=== PATIENT | male | born 1965 | race Caucasian/White ===

== ENCOUNTER 2017-08-05 15:15 | Observation (INO) | payer OTHER ==
[2017-08-05] MEDS ORDERED: NITROGLYCERIN OINT 1 INCH/GM PACKET TOPICAL STA (15:48)
[2017-08-05] MEDS ORDERED: ASPIRIN 81 MG PO STA (15:48)
--- NOTE | 2017-08-05 15:54 | ED ---
General Adult HPI - General Chief complaint: Chest Pain Stated complaint: Chest Pain/SOB Time Seen by Provider: 08/05/17 15:42 Source: patient, RN notes reviewed Mode of arrival: wheelchair Limitations: no limitations - History of Present Illness Initial comments: Patient is a pleasant 52-year-old male presenting to the emergency department with chest discomfort. Onset was last night. Symptoms have been intermittent throughout the day. Symptoms do worsen with exertion. Patient has pressure in his chest that is mild at this time. No radiation. Patient does have associated dyspnea and sweating when symptoms worsen. No nausea. No history of similar symptoms previously. No leg pain or swelling. - Related Data Home Medications Medication Instructions Recorded Confirmed ARIPiprazole [Abilify] 10 mg PO DAILY 08/05/17 08/05/17 Escitalopram Oxalate [Lexapro] 20 mg PO DAILY 08/05/17 08/05/17 Multivitamins, Thera [Multivitamin 1 tab PO DAILY 08/05/17 08/05/17 (formulary)] Previous Rx's Medication Instructions Recorded Gabapentin [Neurontin] 200 mg PO TID #21 dose 08/20/15 Propranolol [Inderal] 30 mg PO BID #14 dose 08/20/15 QUEtiapine [SEROquel] 600 mg PO HS #7 dose 08/20/15 hydrOXYzine PAMOATE [Vistaril] 50 mg PO HS #7 dose 08/20/15 Allergies Allergy/AdvReac Type Severity Reaction Status Date / Time No Known Allergies Allergy Verified 08/05/17 16:27 Review of Systems ROS Statement: Those systems with pertinent positive or pertinent negative responses have been documented in the HPI. ROS Other: All systems not noted in ROS Statement are negative. Constitutional: Denies: fever Eyes: Denies: eye pain ENT: Denies: ear pain Respiratory: Denies: cough Cardiovascular: Reports: chest pain Endocrine: Denies: fatigue Gastrointestinal: Denies: abdominal pain, nausea Genitourinary: Denies: dysuria Musculoskeletal: Denies: back pain Skin: Denies: rash Neurological: Denies: weakness Past Medical History Past Medical History: Hypertension Additional Past Medical History / Comment(s): astigmatism History of Any Multi-Drug Resistant Organisms: None Reported Past Surgical History: Hernia Repair Additional Past Surgical History / Comment(s): APRIL 2015 RIGHT ING. HERNIA REPAIR. lt cubital tunnel release-2013 Past Anesthesia/Blood Transfusion Reactions: No Reported Reaction Additional Past Anesthesia/Blood Transfusion Reaction / Comment(s): FAMILY HX UNK. PT ADOPTED Past Psychological History: Anxiety, Depression Smoking Status: Current every day smoker Past Alcohol Use History: Abuse, Heavy Past Drug Use History: Marijuana - Past Family History Mother History Unknown: Yes Additional Family Medical History / Comment(s): ADOPTED General Exam Limitations: no limitations General appearance: alert, in no apparent distress Head exam: Present: atraumatic Eye exam: Present: normal appearance, PERRL ENT exam: Present: normal oropharynx Neck exam: Present: normal inspection Respiratory exam: Present: normal lung sounds bilaterally. Absent: chest wall tenderness Cardiovascular Exam: Present: regular rate, normal rhythm Expanded Peripheral pulses: 2+: Radial (R), Radial (L), Posterior Tibialis (R), Posterior Tibialis (L) GI/Abdominal exam: Present: soft, normal bowel sounds. Absent: tenderness Extremities exam: Present: normal inspection. Absent: pedal edema, calf tenderness Neurological exam: Present: alert Psychiatric exam: Present: normal affect, normal mood Skin exam: Present: normal color Course Vital Signs 08/05/17 08/05/17 15:23 16:25 Temperature 97.8 F Pulse Rate 77 74 Respiratory 20 18 Rate Blood Pressure 111/71 116/70 O2 Sat by Pulse 98 96 Oximetry EKG Findings - EKG Comments: EKG Findings:: Normal sinus rhythm 73. CT 160. QRS 88. QT 412. QTC 453. Normal axis. Normal QRS. No acute ST change. Medical Decision Making - Medical Decision Making Patient reevaluated and resting comfortably in bed. Patient updated on results and plan. Case discussed with Dr. Lentz, who will admit his patient for observation - Lab Data Result diagrams: 08/05/17 15:45 08/05/17 15:45 Lab Results 08/05/17 08/05/17 08/05/17 Range/Units 15:45 15:45 15:45 WBC 6.7 (3.8-10.6) k/uL RBC 4.28 L (4.30-5.90) m/uL Hgb 12.9 L (13.0-17.5) gm/dL Hct 38.1 L (39.0-53.0) % MCV 89.0 (80.0-100.0) fL MCH 30.2 (25.0-35.0) pg MCHC 34.0 (31.0-37.0) g/dL RDW 15.0 (11.5-15.5) % Plt Count 224 (150-450) k/uL Neutrophils % 74 % Lymphocytes % 15 % Monocytes % 9 % Eosinophils % 2 % Basophils % 0 % Neutrophils # 4.9 (1.3-7.7) k/uL Lymphocytes # 1.0 (1.0-4.8) k/uL Monocytes # 0.6 (0-1.0) k/uL Eosinophils # 0.1 (0-0.7) k/uL Basophils # 0.0 (0-0.2) k/uL PT (9.0-12.0) sec INR (<1.2) APTT (22.0-30.0) sec Sodium 139 (137-145) mmol/L Potassium 4.1 (3.5-5.1) mmol/L Chloride 105 (98-107) mmol/L Carbon Dioxide 24 (22-30) mmol/L Anion Gap 10 mmol/L BUN 11 (9-20) mg/dL Creatinine 0.84 (0.66-1.25) mg/dL Est GFR (MDRD) Af Amer >60 (>60 ml/min/1.73 sqM) Est GFR (MDRD) Non-Af >60 (>60 ml/min/1.73 sqM) Glucose 87 (74-99) mg/dL Calcium 9.1 (8.4-10.2) mg/dL Magnesium 1.9 (1.6-2.3) mg/dL Total Bilirubin 0.4 (0.2-1.3) mg/dL AST 19 (17-59) U/L ALT 30 (21-72) U/L Alkaline Phosphatase 76 (38-126) U/L Total Creatine Kinase 62 (55-170) U/L CK-MB (CK-2) 1.3 (0.0-2.4) ng/mL CK-MB (CK-2) Rel Index 2.1 Troponin I <0.012 (0.000-0.034) ng/mL Total Protein 6.1 L (6.3-8.2) g/dL Albumin 3.5 (3.5-5.0) g/dL 08/05/17 Range/Units 15:45 WBC (3.8-10.6) k/uL RBC (4.30-5.90) m/uL Hgb (13.0-17.5) gm/dL Hct (39.0-53.0) % MCV (80.0-100.0) fL MCH (25.0-35.0) pg MCHC (31.0-37.0) g/dL RDW (11.5-15.5) % Plt Count (150-450) k/uL Neutrophils % % Lymphocytes % % Monocytes % % Eosinophils % % Basophils % % Neutrophils # (1.3-7.7) k/uL Lymphocytes # (1.0-4.8) k/uL Monocytes # (0-1.0) k/uL Eosinophils # (0-0.7) k/uL Basophils # (0-0.2) k/uL PT 9.8 (9.0-12.0) sec INR 1.0 (<1.2) APTT 24.3 (22.0-30.0) sec Sodium (137-145) mmol/L Potassium (3.5-5.1) mmol/L Chloride (98-107) mmol/L Carbon Dioxide (22-30) mmol/L Anion Gap mmol/L BUN (9-20) mg/dL Creatinine (0.66-1.25) mg/dL Est GFR (MDRD) Af Amer (>60 ml/min/1.73 sqM) Est GFR (MDRD) Non-Af (>60 ml/min/1.73 sqM) Glucose (74-99) mg/dL Calcium (8.4-10.2) mg/dL Magnesium (1.6-2.3) mg/dL Total Bilirubin (0.2-1.3) mg/dL AST (17-59) U/L ALT (21-72) U/L Alkaline Phosphatase (38-126) U/L Total Creatine Kinase (55-170) U/L CK-MB (CK-2) (0.0-2.4) ng/mL CK-MB (CK-2) Rel Index Troponin I (0.000-0.034) ng/mL Total Protein (6.3-8.2) g/dL Albumin (3.5-5.0) g/dL - Radiology Data Radiology results: image reviewed (Chest x-ray shows no acute process) Disposition Clinical Impression: Chest pain Disposition: ADMITTED IP TO THIS [facility] Referrals: Fidencio Lentz MD [Primary Care Provider] - 1-2 days Decision Time: 17:54
[2017-08-05 15:59] LABS: Basophils % (A) 0 %; CHCM 33.8; Eosinophils # (A) 0.1 k/uL (0-0.7); Eosinophils % (A) 2 %; HCT 38.1 % (39.0-53.0); HGB 12.9 gm/dL (13.0-17.5); Luc # (Auto) 0.09; Luc % (Auto) 1; Lymphocytes % (A) 15 %; MCH 30.2 pg (25.0-35.0); Mean Platelet Volume 7.8; Monocytes # (A) 0.6 k/uL (0-1.0); Monocytes % (A) 9 %; Neutrophils # (A) 4.9 k/uL (1.3-7.7); Neutrophils % (A) 74 %; RBC 4.28 m/uL (4.30-5.90); WBC 6.7 k/uL (3.8-10.6); WBC (Perox) 7.04
[2017-08-05 16:11] LABS: ALT 30 U/L (21-72); AST 19 U/L (17-59); Alkaline Phosphatase 76 U/L (38-126); Anion Gap 10 mmol/L; Blood Urea Nitrogen 11 mg/dL (9-20); Calcium 9.1 mg/dL (8.4-10.2); Carbon Dioxide 24 mmol/L (22-30); Chloride 105 mmol/L (98-107); Glucose 87 mg/dL (74-99); Magnesium 1.9 mg/dL (1.6-2.3); Non-African American GFR(MDRD) >60 (>60 ml/min/1.73 sqM); Potassium 4.1 mmol/L (3.5-5.1); Sodium 139 mmol/L (137-145); Total Bilirubin 0.4 mg/dL (0.2-1.3); Total Protein 6.1 g/dL (6.3-8.2)
[2017-08-05 16:13] LABS: Partial Thromboplastin Time 24.3 sec (22.0-30.0); Prothrombin Time 9.8 sec (9.0-12.0)
[2017-08-05 16:23] LABS: Creatine Kinase 62 U/L (55-170)
--- NOTE | 2017-08-05 16:35 | XR ---
EXAMINATION TYPE: XR chest 2V DATE OF EXAM: 08/05/2017 COMPARISON: 08/15/2015 HISTORY: 52-year-old male with shortness of breath and chest pain TECHNIQUE: Frontal and lateral views FINDINGS: The cardiomediastinal silhouette, aorta, and pulmonary vasculature are within normal limits. Mild int erstitial prominence and mild hyperinflation. No consolidation or pleural effusion. IMPRESSION: Chronic changes, possible underlying COPD. No acute process seen.
[2017-08-05 16:36] LABS: Creatine Kinase MB 1.3 ng/mL (0.0-2.4); Troponin I <0.012 ng/mL (0.000-0.034)
[2017-08-05] MEDS ORDERED: NITROGLYCERIN SL TABS 0.4 MG TAB SUBLINGUAL PRN (17:54)
[2017-08-05] MEDS ORDERED: QUEtiapine 200 MG TAB PO SCH (21:00)
[2017-08-05] MEDS: PROPRANOLOL 10 MG TAB PO SCH (21:24)
[2017-08-05] MEDS: GABAPENTIN 100 MG CAP PO SCH (21:25)
[2017-08-05 21:47] VITALS: BMI 30.3
[2017-08-05 22:30] LABS: Creatine Kinase 45 U/L (55-170)
[2017-08-05 22:41] LABS: Creatine Kinase MB 0.8 ng/mL (0.0-2.4); Troponin I <0.012 ng/mL (0.000-0.034)
[2017-08-06 04:10] LABS: Cholesterol 201 mg/dL (<200); HDL Cholesterol 27 mg/dL (40-60)
[2017-08-06 04:34] LABS: Creatine Kinase 36 U/L (55-170)
[2017-08-06 04:46] LABS: Creatine Kinase MB 0.6 ng/mL (0.0-2.4); Troponin I <0.012 ng/mL (0.000-0.034)
[2017-08-06] MEDS: NITROGLYCERIN OINT 1 INCH/GM PACKET TOPICAL SCH (06:59)
[2017-08-06 08:04] VITALS: RESP 18
[2017-08-06] MEDS ORDERED: ESCITALOPRAM 20 MG TAB PO SCH (09:00)
[2017-08-06] MEDS ORDERED: ASPIRIN 325 MG TAB PO SCH (09:00)
[2017-08-06] MEDS ORDERED: ARIPiprazole 10 MG TAB PO SCH (09:00)
[2017-08-06] MEDS: GABAPENTIN 100 MG CAP PO SCH (10:50)
[2017-08-06] MEDS: PROPRANOLOL 10 MG TAB PO SCH (10:51)
[2017-08-06 12:40] VITALS: BP 117/74; PULSE 77; TEMP 98.1
--- NOTE | 2017-08-06 19:14 | HP ---
HISTORY AND PHYSICAL CHIEF COMPLAINT: Chest pain. HISTORY OF PRESENT ILLNESS: This is another admission for this 52-year-old white male who has psychiatric issues, but also has had problems with hypertension. He came to the emergency room with complaints of left anterior chest pain radiating toward the left shoulder. He did say it was associated with some shortness of breath, but no diaphoresis. Studies in the emergency room were negative. He was admitted for observation. REVIEW OF SYSTEMS: He has had no syncope, aching in the jaw, cough, hemoptysis, orthopnea, PND, murmurs, etc. He has never had any documented heart disease in the past. He has had no neurologic problems, changes in vision or the hearing, abdominal pain, indigestion, nausea, vomiting, diarrhea, melena. He has had no renal disease and he is not diabetic. The remainder of his history is unremarkable. He has had no prior surgery. He is not allergic to any medication. He takes: 1. Vitamin D. 2. Abilify 10 mg once a day. 3. Lexapro 20 mg once a day. 4. Hydroxyzine 50 mg at night. 5. Gabapentin 200 mg 3 times a day. 6. Propranolol 10 mg 3 tablets twice a day. 7. Seroquel 200 mg 3 at bedtime. 8. Aspirin. He is adopted and does not know of any family history. He does smoke. PHYSICAL EXAM: Blood pressure is 90/74 with a pulse of 80, respirations of 18 and he is afebrile. GENERAL: He appeared to be well-developed, well-nourished, in no acute distress. SKIN: Color is normal. Skin is warm and dry. LYMPH NODES: Not enlarged. HEAD, EARS, EYES, NOSE, MOUTH AND THROAT: Normal. NECK: Veins not distended. Thyroid not enlarged. CHEST: Clear. CARDIAC: Normal. ABDOMEN: Soft, nontender. EXTREMITIES: Normal. NEUROLOGICAL: Intact. IMPRESSION: 1. Chest pain, atypical. 2. Hypertension. 3. Schizophrenia and bipolar depression. PLAN: 1. Bed rest. 2. IV fluids. 3. Nasal O2. 4. Serial EKGs and enzymes. MMODL / IJN: [id number] /
--- NOTE | 2017-08-06 20:50 | DS ---
DISCHARGE SUMMARY CHIEF COMPLAINT: Chest pain. HISTORY OF PRESENT ILLNESS AND PHYSICAL EXAM: Details of this man's history and physical can be found in the initial workup. LABORATORY STUDIES: While he was in the hospital he had laboratory studies, details which can be found in the laboratory section of chart. COURSE IN HOSPITAL: After admission, he was placed in bedrest, started on intravenous fluids. He had serial EKGs and enzymes. They were all normal. It was felt he could go home. He will go home on his usual medication, activity and diet and follow up in a day or two for further assessment. FINAL DIAGNOSES: 1. Anterior chest wall pain. 2. Bipolar depression. 3. Schizophrenia. 4. History of hypertension. 5. Nicotine abuse. OPERATIONS: None. CONSULTATION: . He is improved. MMODL / IJN: [id number] /
== END 2017-08-06 15:13 | disposition home or self-care (01) ==
LOC: EC 15:15 → 3OBS 17:54
PROVIDERS: ADMIT Family Medicine; ATTEND Family Medicine
DX: R07.89 Other chest pain (principal); R06.02 Shortness of breath; F31.9 Bipolar disorder, unspecified; F20.9 Schizophrenia, unspecified; F41.9 Anxiety disorder, unspecified; I10 Essential (primary) hypertension; F17.200 Nicotine dependence, unspecified, uncomplicated; Z79.899 Other long term (current) drug therapy
CPT/HCPCS: 99285; 93005 ×2; 36415; 80061; 80053; 82550 ×2; 82553 ×2; 83735; 84484 ×2; 85025; 85610; 85730; 71020; G0378 ×2

== ENCOUNTER 2019-04-05 05:31 | Emergency (ER) | payer BC, OTHER ==
[2019-04-05 05:46] VITALS: BP 134/77; TEMP 98
[2019-04-05 06:10] VITALS: PULSE 66; RESP 18
--- NOTE | 2019-04-05 06:30 | XR ---
EXAM: XR Right Elbow Complete, 3 or More Views CLINICAL HISTORY: ITS.REASON XR Reason: Pain TECHNIQUE: Frontal, lateral and oblique views of the right elbow. COMPARISON: No relevant prior studies available. FINDINGS: Bones/joints: No dislocation. Tiny ossicles ventral to the distal humerus and around the radial head. Soft tissues: There is significant elevation of the anterior fat pad indicative of joint effusion. IMPRESSION: There is joint effusion with tiny ossicles near the distal ventral humerus and around the radial head. Cannot exclude chip fracture. No significant dislocation elbow joint.
--- NOTE | 2019-04-05 07:36 | ED ---
Extremity Problem HPI - General Chief complaint: Extremity Problem,Nontraumatic Stated complaint: R Elbow Pain Time Seen by Provider: 04/05/19 06:51 Source: patient, RN notes reviewed, old records reviewed Mode of arrival: ambulatory Limitations: no limitations - History of Present Illness Initial comments: Patient is a 54-year-old male presents resident her in today for evaluation complaints right elbow pain. He reports symptoms started 3 days ago. Patient denies trauma. 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 Patient states that he's had no previous elbow injuries. He denies any peripheral paresthesias. Patient reports he has limited extension and flexion of the elbow. - Related Data Home Medications Medication Instructions Recorded Confirmed Multivitamins, Thera [Multivitamin 1 tab PO DAILY 08/05/17 04/05/19 (formulary)] Allergies Allergy/AdvReac Type Severity Reaction Status Date / Time No Known Allergies Allergy Verified 04/05/19 07:17 Review of Systems ROS Statement: Those systems with pertinent positive or pertinent negative responses have been documented in the HPI. ROS Other: All systems not noted in ROS Statement are negative. Past Medical History Past Medical History: Hypertension Additional Past Medical History / Comment(s): astigmatism History of Any Multi-Drug Resistant Organisms: None Reported Past Surgical History: Hernia Repair Additional Past Surgical History / Comment(s): APRIL 2015 RIGHT ING. HERNIA REPAIR. lt cubital tunnel release-2013 Past Anesthesia/Blood Transfusion Reactions: No Reported Reaction Additional Past Anesthesia/Blood Transfusion Reaction / Comment(s): FAMILY HX UNK. PT ADOPTED Past Psychological History: Anxiety, Depression Smoking Status: Current every day smoker Past Alcohol Use History: Abuse, Heavy Past Drug Use History: None Reported - Past Family History Mother History Unknown: Yes Additional Family Medical History / Comment(s): ADOPTED General Exam - General Exam Comments Initial Comments: 54-year-old male. Alert and oriented. No distress. Limitations: no limitations General appearance: alert, in no apparent distress Head exam: Present: atraumatic, normocephalic, normal inspection Eye exam: Present: normal appearance, PERRL, EOMI. Absent: scleral icterus, conjunctival injection, periorbital swelling ENT exam: Present: normal exam, mucous membranes moist Neck exam: Present: normal inspection. Absent: tenderness, meningismus, lymphadenopathy Respiratory exam: Present: normal lung sounds bilaterally Cardiovascular Exam: Present: regular rate, normal rhythm, normal heart sounds. Absent: systolic murmur, diastolic murmur, rubs, gallop, clicks GI/Abdominal exam: Present: soft, normal bowel sounds. Absent: distended, t enderness, guarding, rebound, rigid Extremities exam: Present: normal inspection, full ROM, normal capillary refill. Absent: tenderness, pedal edema, joint swelling, calf tenderness Right Elbow exam: Present: normal inspection, tenderness, swelling (Patient has tenderness and swelling over the radial head.). Absent: full ROM ( is limited full extension. Able to flex at 90 and extend to 120.) Forearm Wrist exam: Present: normal inspection, full ROM Hand Wrist exam: Present: normal inspection, full ROM Back exam: Present: normal inspection Neurological exam: Present: alert, oriented X3, CN II-XII intact Psychiatric exam: Present: normal affect, normal mood Skin exam: Present: warm, dry, intact, normal color. Absent: rash Course Vital Signs 04/05/19 04/05/19 05:42 06:08 Temperature 98 F Pulse Rate 81 66 Respiratory 16 18 Rate Blood Pressure 134/77 O2 Sat by Pulse 97 98 Oximetry Procedures - Orthopedic Splinting/Casting Injury #1 Side: right Upper Extremity Injury Location: elbow Upper Extremity Immobilizer: sling/shoulder immobilizer, posterior splint, Kana wrap, synthetic pre-padded splint Medical Decision Making - Medical Decision Making Patient is a 54-year-old male presents return today for evaluation of right elbow pain. 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 Patient states that he's had no other symptoms besides. X-ray shows evidence of concern for possible radial head chip fracture. Patient was placed in a posterior splint. Patient was nervous intact. Discussed following up food safety field specialist. - Radiology Data Radiology results: report reviewed The joint effusion and a tiny ossicles near the distal ventral humerus and around the radial head. Come exclude chip fracture. No significant dislocation elbow joint. Disposition Clinical Impression: Radial head fracture, closed Disposition: HOME SELF-CARE Condition: Good Instructions (If sedation given, give patient instructions): Elbow Fracture (ED) Additional Instructions: Follow-up with orthopedic physician. Patient to take Motrin and Tylenol for pain. Remain in the splint. Return to the emergency department if any alarming signs or symptoms occur. Is patient prescribed a controlled substance at d/c from ED?: No Referrals: None,Stated [Primary Care Provider] - 1-2 days Juvencio Okeefe DO [Doctor of Osteopathic Medicine] - 1-2 days Time of Disposition: 07:35
== END 2019-04-05 07:40 | disposition home or self-care (01) ==
LOC: EC 05:31
DX: S52.121A Displaced fracture of head of right radius, initial encounter for closed fracture (principal); F17.200 Nicotine dependence, unspecified, uncomplicated; X58.XXXA Exposure to other specified factors, initial encounter
CPT/HCPCS: 99284

== ENCOUNTER 2022-09-02 09:11 | Inpatient (IN) | payer OTHER ==
[2022-09-02] MEDS ORDERED: IPRATROPIUM-ALBUTEROL 3 ML NEB INHALATION STA ×3 (09:19→10:26)
[2022-09-02] MEDS ORDERED: methylPREDNISolone SOD SUCCI 125 MG/2 ML VIAL IV STA (09:19)
[2022-09-02] MEDS ORDERED: MAGNESIUM SULFATE-D5W PMX 1 GM in DEXTROSE/WATER 1 100ML.BAG IVPB STA (09:19)
[2022-09-02 09:38] LABS: Basophils % (A) 0 %; Eosinophils # (A) 0.2 k/uL (0-0.7); Eosinophils % (A) 2 %; HCT 42.4 % (39.0-53.0); HGB 14.6 gm/dL (13.0-17.5); Lymphocytes # (A) 0.5 k/uL (1.0-4.8); Lymphocytes % (A) 6 %; MCH 31.5 pg (25.0-35.0); MCHC 34.3 g/dL (31.0-37.0); MCV 91.8 fL (80.0-100.0); Mean Platelet Volume 9.3; Monocytes # (A) 0.6 k/uL (0-1.0); Monocytes % (A) 7 %; Neutrophils # (A) 6.8 k/uL (1.3-7.7); Neutrophils % (A) 82 %; Platelet Count 191 k/uL (150-450); RBC 4.62 m/uL (4.30-5.90); RDW 12.3 % (11.5-15.5); WBC 8.2 k/uL (3.8-10.6)
[2022-09-02 09:55] LABS: ALT 18 U/L (4-49); AST 23 U/L (17-59); African American GFR (CKD) >90 (>60 ml/min/1.73 sqM); Albumin 4.3 g/dL (3.5-5.0); Alkaline Phosphatase 74 U/L (38-126); Anion Gap 10 mmol/L; Blood Urea Nitrogen 16 mg/dL (9-20); Calcium 8.9 mg/dL (8.4-10.2); Carbon Dioxide 26 mmol/L (22-30); Chloride 101 mmol/L (98-107); Glucose 109 mg/dL (74-99); Magnesium 1.6 mg/dL (1.6-2.3); Non-African American GFR(CKD) >90 (>60 ml/min/1.73 sqM); Potassium 3.9 mmol/L (3.5-5.1); Sodium 137 mmol/L (137-145); Total Bilirubin 0.6 mg/dL (0.2-1.3); Total Protein 6.9 g/dL (6.3-8.2)
[2022-09-02 09:57] LABS: INR 0.9 (<1.2); Partial Thromboplastin Time 24.9 sec (22.0-30.0); Prothrombin Time 10.3 sec (9.0-12.0)
--- NOTE | 2022-09-02 10:56 | ED ---
General Adult HPI - General Chief complaint: Shortness of Breath Stated complaint: BERNADETTE Time Seen by Provider: 09/02/22 09:13 Source: patient, EMS, RN notes reviewed, old records reviewed Mode of arrival: EMS Limitations: no limitations - History of Present Illness Initial comments: Patient is a 57-year-old male with past medical history remarkable for chronic tobacco use, prior chronic alcohol use, hypertension who presents with progressively worsening shortness of breath over the last 4 days. States he feels like he cannot catch his breath and feels like "my lungs are fully onto air." States it seems to take longer for him to completely exhale. No prior diagnosis of COPD. States he is a chronic tobacco user. Denies any fevers or chills. Does endorse a cough productive of clear mucus. Denies any sick contacts. Denies nausea, vomiting, abdominal pain. Denies any chest pain. His no other acute complaints at this time. Presents for further evaluation at this time.Patient initially presented to an urgent care where he was found to be somewhat hypoxic with movement and diffusely wheezy. Was transferred here via EMS. - Related Data Home Medications Medication Instructions Recorded Confirmed No Known Home Medications 09/02/22 09/02/22 Allergies Allergy/AdvReac Type Severity Reaction Status Date / Time No Known Allergies Allergy Verified 09/02/22 11:14 Review of Systems ROS Statement: Those systems with pertinent positive or pertinent negative responses have been documented in the HPI. Review of Systems: CONST: Denies fever EYES: Denies blurry vision ENT: Denies nasal congestion C/V: Denies Chest pain RESP: Endorses shortness of breath GI: Denies abdominal pain : Denies dysuria SKIN: Denies rash. MSK: Denies joint pain. NEURO: Denies headache ROS Other: All systems not noted in ROS Statement are negative. Past Medical History Past Medical History: Hypertension Additional Past Medical History / Comment(s): astigmatism History of Any Multi-Drug Resistant Organisms: None Reported Past Surgical History: Hernia Repair Additional Past Surgical History / Comment(s): APRIL 2015 RIGHT ING. HERNIA REPAIR. lt cubital tunnel release-2013 Past Anesthesia/Blood Transfusion Reactions: No Reported Reaction Additional Past Anesthesia/Blood Transfusion Reaction / Comment(s): FAMILY HX UNK. PT ADOPTED Past Psychological History: Anxiety, Depression Smoking Status: Current every day smoker Past Alcohol Use History: Abuse, Heavy Past Drug Use History: None Reported - Past Family History Mother History Unknown: Yes Additional Family Medical History / Comment(s): ADOPTED General Exam - General Exam Comments Initial Comments: General: Appears in no acute distress. HEAD: Normal with no signs of head trauma. EYES: PERRLA, EOMI, conjunctiva normal, no discharge. ENT: Hearing grossly intact, normal oropharynx. RESPIRATORY: Diffusely wheezy with mild increased work of breathing. Hypoxic on room air between 90 and 94%. Has a prolonged expiratory phase. C/V: Regular rate and rhythm. S1 and S2 auscultated, no edema, peripheral pulses 2+ and intact throughout ABD: Abd is soft, nontender, nondistended EXT: Normal range of motion, no obvious deformity SKIN: No rashes or lesions observed on exposed skin. NEURO: Alert and oriented 4. Limitations: no limitations Course Vital Signs 09/02/22 09/02/22 09/02/22 09:12 09:40 09:50 Temperature 99.2 F Pulse Rate 92 90 90 Respiratory 18 Rate Blood Pressure 123/86 O2 Sat by Pulse 99 Oximetry 09/02/22 09/02/22 09/02/22 09:59 10:49 11:00 Temperature Pulse Rate 90 88 92 Respiratory Rate Blood Pressure O2 Sat by Pulse Oximetry 09/02/22 11:45 Temperature Pulse Rate Respiratory Rate Blood Pressure O2 Sat by Pulse 98 Oximetry Medical Decision Making - Medical Decision Making Based on the patient's presentation and physical exam, with his history of tobacco use as well as diffuse wheezing with prolonged expiratory phase patient is likely experiencing newly diagnosed COPD exacerbation. Patient does have a productive cough of clear mucus. We will obtain basic labs, infectious labs, screening EKG as well as a chest x-ray. He'll be continued on continuous cardiac monitoring with continuous pulse oximetry. We will treat his COPD with IV steroids, as well as multiple breathing treatments here in the department. Also be given 1 g of magnesium. He was in agreement with this plan. Vital signs are within acceptable limits but he is mildly hypoxic on room air. EKG shows no signs of acute ischemia. Laboratory studies are remarkable for negative COVID-19 and flu swabs. Chest x-ray reveals no acute cardio pulmonary process. Following multiple breathing treatments here in the department, patient remains having diffuse bilateral end expiratory wheezing. At rest, patient does appear to have pulse ox anywhere from 90-95%. Due to the patient's exam findings, as well as what appears to be new diagnosis COPD, did recommend we admit him to the hospital for further treatment and evaluation by pulmonology. He was in agreement this plan. We'll continue breathing treatments as well as IV steroids. I spoke with the admitting physician, Dr. waller who is covering for Dr. Lentz who accepted the patient. Pulmonology was consulted. - Lab Data Result diagrams: 09/02/22 09:25 09/02/22 09:25 Lab Results 09/02/22 09/02/22 09/02/22 Range/Units 09:25 09:25 09:25 WBC 8.2 (3.8-10.6) k/uL RBC 4.62 (4.30-5.90) m/uL Hgb 14.6 (13.0-17.5) gm/dL Hct 42.4 (39.0-53.0) % MCV 91.8 (80.0-100.0) fL MCH 31.5 (25.0-35.0) pg MCHC 34.3 (31.0-37.0) g/dL RDW 12.3 (11.5-15.5) % Plt Count 191 (150-450) k/uL MPV 9.3 Neutrophils % 82 % Lymphocytes % 6 % Monocytes % 7 % Eosinophils % 2 % Basophils % 0 % Neutrophils # 6.8 (1.3-7.7) k/uL Lymphocytes # 0.5 L (1.0-4.8) k/uL Monocytes # 0.6 (0-1.0) k/uL Eosinophils # 0.2 (0-0.7) k/uL Basophils # 0.0 (0-0.2) k/uL PT 10.3 (9.0-12.0) sec INR 0.9 (<1.2) APTT 24.9 (22.0-30.0) sec Sodium 137 (137-145) mmol/L Potassium 3.9 (3.5-5.1) mmol/L Chloride 101 (98-107) mmol/L Carbon Dioxide 26 (22-30) mmol/L Anion Gap 10 mmol/L BUN 16 (9-20) mg/dL Creatinine 0.67 (0.66-1.25) mg/dL Est GFR (CKD-EPI)AfAm >90 (>60 ml/min/1.73 sqM) Est GFR (CKD-EPI)NonAf >90 (>60 ml/min/1.73 sqM) Glucose 109 H (74-99) mg/dL Calcium 8.9 (8.4-10.2) mg/dL Magnesium 1.6 (1.6-2.3) mg/dL Total Bilirubin 0.6 (0.2-1.3) mg/dL AST 23 (17-59) U/L ALT 18 (4-49) U/L Alkaline Phosphatase 74 (38-126) U/L Total Protein 6.9 (6.3-8.2) g/dL Albumin 4.3 (3.5-5.0) g/dL Coronavirus (PCR) (Not Detectd) Influenza Type A RNA (Not Detectd) Influenza Type B (PCR) (Not Detectd) 09/02/22 09/02/22 Range/Units 09:25 09:25 WBC (3.8-10.6) k/uL RBC (4.30-5.90) m/uL Hgb (13.0-17.5) gm/dL Hct (39.0-53.0) % MCV (80.0-100.0) fL MCH (25.0-35.0) pg MCHC (31.0-37.0) g/dL RDW (11.5-15.5) % Plt Count (150-450) k/uL MPV Neutrophils % % Lymphocytes % % Monocytes % % Eosinophils % % Basophils % % Neutrophils # (1.3-7.7) k/uL Lymphocytes # (1.0-4.8) k/uL Monocytes # (0-1.0) k/uL Eosinophils # (0-0.7) k/uL Basophils # (0-0.2) k/uL PT (9.0-12.0) sec INR (<1.2) APTT (22.0-30.0) sec Sodium (137-145) mmol/L Potassium (3.5-5.1) mmol/L Chloride (98-107) mmol/L Carbon Dioxide (22-30) mmol/L Anion Gap mmol/L BUN (9-20) mg/dL Creatinine (0.66-1.25) mg/dL Est GFR (CKD-EPI)AfAm (>60 ml/min/1.73 sqM) Est GFR (CKD-EPI)NonAf (>60 ml/min/1.73 sqM) Glucose (74-99) mg/dL Calcium (8.4-10.2) mg/dL Magnesium (1.6-2.3) mg/dL Total Bilirubin (0.2-1.3) mg/dL AST (17-59) U/L ALT (4-49) U/L Alkaline Phosphatase (38-126) U/L Total Protein (6.3-8.2) g/dL Albumin (3.5-5.0) g/dL Coronavirus (PCR) Not Detected (Not Detectd) Influenza Type A RNA Not Detected (Not Detectd) Influenza Type B (PCR) Not Detected (Not Detectd) - EKG Data -: EKG Interpreted by Me EKG Comments: 12-lead Electrocardiogram Interpretation Note EKG was reviewed and interpreted by myself. 12-lead ECG performed at 0919 is interpreted by me as revealing normal sinus rhythm at a rate of 87 beats per minute. [place] is normal. CO interval is 159 ms, QRS duration is 92 ms, QTc is 405 ms.. There were no ST or T wave abnormalities to suggest myocardial ischemi a or injury. R wave progression across the precordium was satisfactory. By my interpretation this EKG is non-diagnostic for acute ischemia. Disposition Clinical Impression: COPD (chronic obstructive pulmonary disease) Disposition: ADMITTED IP TO THIS HOSP Condition: Stable Time of Disposition: 11:35
--- NOTE | 2022-09-02 10:59 | XR ---
EXAMINATION TYPE: XR chest 2V DATE OF EXAM: 09/02/2022 COMPARISON: NONE TECHNIQUE: PA and lateral views submitted. HISTORY: Difficulty breathing FINDINGS: The lungs are clear and there is no pneumothorax, pleural effusion, or focal pneumonia. Hyperinflat ion. No pneumothorax no overt failure. Mild hypertrophic changes of the spine. IMPRESSION: 1. No acute process. Correlate for COPD.
[2022-09-02] MEDS ORDERED: NALOXONE 0.4 MG/ML 1 ML VIAL IV PRN (11:46)
[2022-09-02] MEDS ORDERED: IPRATROPIUM-ALBUTEROL 3 ML NEB INHALATION PRN (11:48)
--- NOTE | 2022-09-02 14:40 | P.CNPUL ---
History of Present Illness Consult date: 09/02/22 Reason for consult: dyspnea History of present illness: This is a 57-year-old mentation, chronic smoker , smoked since the age of 16 approximately one pack of cigarettes a day and recently is trying to slow down his smoking down to half pack of cigarettes a day. Denies having any childhood asthma. Works locally at [employer]. 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 His active. He has noted some worsening shortness of breath. Patient initially went to the urgent care with difficulty in breathing. He stated that he has been coughing for the past 3 days and subsequently became progressively more short of breath. He woke up today and he was unable to walk more than 100 feet. He had difficulties in emptying his lung with exhalation. He has also exhalation wheeze. He was short of breath and his pulse ox was 89% on initial evaluation at the urgent care. After resting, his pulse ox came up to 94%. Currently is on room air oxygen and he is pulse ox is 95%. No angina. No pleurisy. No swelling lower extremities. No soreness in his throat. He is complaining of some occasional headache. I reviewed the records from the urgent care. The est x-ray was done there and apparently showed no acute abnormalities. A repeat chest x-ray was done in our hospital indicating COPD without any other acute changes. In terms of his blood work, the patient has a white cell count of 8.2 with a hemoglobin of 14.6 and a platelet count of 191. Normal coagulation profile. Normal electrolytes. Normal LFTs. His influenza a and B were negative. His Covid 19 testing was negative. The patient states that he has been vaccinated for Covid 19 and he has not her been infected. He does not utilize any form of respiratory medications or inhalers on outpatient basis. Review of Systems Constitutional: Denies chills, Denies fever Eyes: denies as per HPI, denies blurred vision, denies bulging eye, denies decreased vision, denies diplopia, denies discharge, denies dry eye, denies irritation, denies itching, denies pain, denies photophobia, denies loss of peripheral vision, denies loss of vision, denies tunnel vision/blind spots Ears: deny: decreased hearing, ear discharge, earache, tinnitus Ears, nose, mouth and throat: Reports as per HPI Breasts: absent: as per HPI, gynecomastia Cardiovascular: Reports decreased exercise tolerance, Reports dyspnea on exertion Respiratory: Reports cough, Reports dyspnea, Reports wheezing Gastrointestinal: Reports as per HPI Genitourinary: Reports as per HPI Musculoskeletal: Reports as per HPI Musculoskeletal: absent: ankle pain, ankle stiffness, ankle swelling, as per HPI, elbow pain, elbow stiffness, elbow swelling, foot pain, foot stiffness, foot swelling, hand pain, hand stiffness, hand swelling, hip pain, hip stiffness, hip swelling, knee pain, knee stiffness, knee swelling, shoulder pain, shoulder stiffness, shoulder swelling, wrist pain, wrist stiffness, wrist swelling Integumentary: Reports as per HPI Neurological: Reports as per HPI Psychiatric: Reports as per HPI Endocrine: Reports as per HPI Hematologic/Lymphatic: Reports as per HPI Allergic/Immunologic: Reports as per HPI Past Medical History Past Medical History: COPD, Hypertension Additional Past Medical History / Comment(s): astigmatism History of Any Multi-Drug Resistant Organisms: None Reported Past Surgical History: Hernia Repair Additional Past Surgical History / Comment(s): APRIL 2015 RIGHT ING. HERNIA REPAIR. lt cubital tunnel release-2013 Past Anesthesia/Blood Transfusion Reactions: No Reported Reaction Additional Past Anesthesia/Blood Transfusion Reaction / Comment(s): FAMILY HX UNK. PT ADOPTED Past Psychological History: Anxiety, Depression Smoking Status: Current every day smoker Past Alcohol Use History: Abuse, Heavy Past Drug Use History: None Reported - Past Family History Mother History Unknown: Yes Additional Family Medical History / Comment(s): ADOPTED Medications and Allergies Home Medications Medication Instructions Recorded Confirmed Type No Known Home Medications 09/02/22 09/02/22 History Allergies Allergy/AdvReac Type Severity Reaction Status Date / Time No Known Allergies Allergy Verified 09/02/22 11:14 Physical Exam Vitals: Vital Signs Temp Pulse Resp BP Pulse Ox 09/02/22 14:15 92 18 142/81 95 09/02/22 11:45 98 09/02/22 11:00 92 09/02/22 10:49 88 09/02/22 09:59 90 09/02/22 09:50 90 09/02/22 09:40 90 09/02/22 09:12 99.2 F 92 18 123/86 99 Intake and Output 09/01/22 09/02/22 09/02/22 22:59 06:59 14:59 Other: Weight 102.058 kg Results The patient appeared well nourished and normally developed. Vital signs as documented. Head exam is unremarkable. No scleral icterus or corneal arcus noted. Neck is without jugular venous distension, thyromegaly, or carotid bruits. Carotid upstrokes are brisk bilaterally. Lungs reveal diminished breath sounds bilaterally and the patient has very prolonged exhalation phase of breathing and exhalation wheezing heard throughout the lung acharya bilaterally.. Cardiac exam reveals the PMI to be normally sized and situated. Rhythm is regular. First and second heart sounds normal. No murmurs, rubs or gallops. Abdominal exam reveals normal bowel sounds, no masses, no organomegaly and no aortic enlargement. Extremities are nonedematous and both femoral and pedal pulses are normal.Examination of the skin revealed no evidence of significant r ashes, suspicious appearing nevi or other concerning lesions.Neurologically, the patient is awake and alert and the patient does not have any focal neurological deficit. Cranial nerves are essentially intact. - Laboratory Findings CBC and BMP: 09/02/22 09:25 09/02/22 09:25 PT/INR, D-dimer PT 10.3 sec (9.0-12.0) 09/02/22 09:25 INR 0.9 (<1.2) 09/02/22 09:25 Abnormal lab findings: Abnormal Labs 09/02/22 09/02/22 09:25 09:25 Lymphocytes # 0.5 L Glucose 109 H Assessment and Plan Plan: Acute COPD exacerbation, rule out tracheobronchitis, no indication for any underlying pneumonia Acute shortness of breath secondary to above Acute hypoxic respiratory failure, improved and the patient's current pulse ox is 95% on room air oxygen Chronic smoker Hypertension Plan Immediate smoking cessation DuoNeb neb treatments [id number] IV Solu-Medrol 60 mg every 6 hours Symbicort as maintenance 2 puffs twice a day Doxycycline as an empiric antibiotic coverage We'll monitor his progress. Will need outpatient follow-up including a PFT and further adjustment in his respiratory medication. Very important to quit smoking as soon as possible. Nicotine patch Check d-dimer Check pro calcitonin level
[2022-09-02] MEDS: IPRATROPIUM-ALBUTEROL 3 ML NEB INHALATION SCH ×2 (14:51→20:04)
[2022-09-02] MEDS: methylPREDNISolone SOD SUCCI 125 MG/2 ML VIAL IV SCH ×2 (16:45→23:59)
[2022-09-02] MEDS: NICOTINE 14MG/24HR PATCH TRANSDERM SCH (16:45)
[2022-09-02] MEDS: HEPARIN SODIUM,PORCINE/PF 5,000 UNIT/0.5 ML SYRINGE SQ SCH (16:45)
[2022-09-02] MEDS: ALPRAZolam 0.5 MG TAB PO PRN (16:45)
[2022-09-02] MEDS: DOXYCYCLINE 100 MG CAP PO SCH (20:01)
[2022-09-02] MEDS: SYMBICORT 160-4.5 MCG INHALER INHALATION SCH (20:04)
[2022-09-02] MEDS ORDERED: methylPREDNISolone SOD SUCCI 40 MG/ML 1 ML VIAL IV SCH (21:00)
[2022-09-03] MEDS: ALPRAZolam 0.5 MG TAB PO PRN (00:53)
--- NOTE | 2022-09-03 03:39 | P.HPIM ---
History of Present Illness Date of service 09/02/2022. Patient is seen and examined by me at bedside in room 634 This is a pleasant 57 years old male with no previous history of COPD presents because of worsening dyspnea over the course of several days, he denies chest pain, he was not coughing during the encounter. Denies abdominal pain and vomiting, no urinary complaints, no headache, weakness or numbness. He smokes about half pack per day and he was counseled to quit and he agrees and he agrees to the nicotine patch. Occasional drinks alcohol and uses marijuana sometimes. He is afebrile (Table. He Is Saturating 95% on 2 L Oxygen Nasal Cannula Patient Is a Started on Solu-Medrol, Doxycycline and Breathing Treatment. Patient Feels Very Anxious and He Was Asking for Something to Calm him down, Xanax When Necessary Is Admitted acute COPD exacerbation Review of Systems Review of systems CONSTITUTIONAL: No fever, no malaise, no fatigue. HEENT: No recent visual problems or hearing problems. Denied any sore throat. CARDIOVASCULAR: No orthopnea, PND, no palpitations, no syncope. PULMONARY: No chest wall tenderness, no hemoptysis. GASTROINTESTINAL: No diarrhea, no nausea, no vomiting, no abdominal pain. Normoactive bowel sounds. NEUROLOGICAL: No headaches, no weakness, no numbness. HEMATOLOGICAL: Denies any bleeding or petechiae. GENITOURINARY: Denies any burning micturition, frequency, or urgency. MUSCULOSKELETAL/RHEUMATOLOGICAL: Denies any joint pain, swelling, or any muscle pain. ENDOCRINE: Denies any polyuria or polydipsia. Past Medical History Past Medical History: COPD, Hypertension Additional Past Medical History / Comment(s): astigmatism History of Any Multi-Drug Resistant Organisms: None Reported Past Surgical History: Hernia Repair Additional Past Surgical History / Comment(s): APRIL 2015 RIGHT ING. HERNIA REPAIR. lt cubital tunnel release-2013 Past Anesthesia/Blood Transfusion Reactions: No Reported Reaction Additional Past Anesthesia/Blood Transfusion Reaction / Comment(s): FAMILY HX UNK. PT ADOPTED Past Psychological History: Anxiety, Depression Smoking Status: Current every day smoker Past Alcohol Use History: Abuse, Heavy Additional Past Alcohol Use History / Comment(s): Pt states he has been sober and free from marijuana us for >13 months, and is cutting back on tobacco smoker. Is down to 3 cigarettes daily. Past Drug Use History: None Reported Additional Drug Use History / Comment(s): Once a month - Past Family History Mother History Unknown: Yes Additional Family Medical History / Comment(s): ADOPTED Medications and Allergies Home Medications Medication Instructions Recorded Confirmed Type No Known Home Medications 09/02/22 09/02/22 History Allergies Allergy/AdvReac Type Severity Reaction Status Date / Time No Known Allergies Allergy Verified 09/02/22 16:18 Physical Exam Vitals: Vital Signs Temp Pulse Pulse Resp BP BP Pulse Ox 09/02/22 20:06 85 09/02/22 19:44 97.9 F 89 18 143/55 95 09/02/22 16:36 24 09/02/22 16:19 98.3 F 90 24 128/74 95 09/02/22 15:05 86 09/02/22 14:53 90 09/02/22 14:15 92 18 142/81 95 09/02/22 11:45 98 09/02/22 11:00 92 09/02/22 10:49 88 09/02/22 09:59 90 09/02/22 09:50 90 09/02/22 09:40 90 09/02/22 09:12 99.2 F 92 18 123/86 99 Intake and Output 09/02/22 09/02/22 09/03/22 14:59 22:59 06:59 Intake Total 120 Balance 120 Intake: Oral 120 Other: Voiding Method Toilet Toilet # Voids 1 Weight 102.058 kg 102.058 kg GENERAL: The patient is alert and oriented x3, not in any acute distress. Well developed, well nourished. HEENT: Pupils are round and equally reacting to light. EOMI. No scleral icterus. No conjunctival pallor. Normocephalic, atraumatic. No pharyngeal erythema. No thyromegaly. CARDIOVASCULAR: S1 and S2 present. No murmurs, rubs, or gallops. -PULMONARY: Chest is clear to auscultation, mild bilateral expiratory wheezing. No crackles. ABDOMEN: Soft, nontender, nondistended, normoactive bowel sounds. No palpable organomegaly. MUSCULOSKELETAL: No joint swelling or deformity. EXTREMITIES: No cyanosis, clubbing, or pedal edema. NEUROLOGICAL: Gross neurological examination did not reveal any focal deficits. SKIN: No rashes. no petechiae. Results CBC & Chem 7: 11/01/22 09:25 09/02/22 09:25 Labs: Abnormal Lab Results - Last 24 Hours (Table) 09/02/22 09/02/22 Range/Units 09:25 09:25 Lymphocytes # 0.5 L (1.0-4.8) k/uL Glucose 109 H (74-99) mg/dL Thrombosis Risk Factor Assmnt - Choose All That Apply Each Factor Represents 1 point: Age 41-60 years, Obesity (BMI >25) Thrombosis Risk Factor Assessment Total Risk Factor Score: 2 Thrombosis Risk Factor Assessment Level: Low Risk Assessment and Plan Assessment: Nicotine dependence Substance abuse with marijuana. Patient was counseled. Anxiety Plan: Continue with IV Solu-Medrol Continue with doxycycline and bronchodilator Oxygen as needed Pulmonary consult Miguel Angelx. Nicotine patch Labs and medication were reviewed.. Continue same treatment. Continue with symptomatic treatment. Resume home medication. Monitor lytes and vitals. DVT and GI prophylaxis. Further recommendations as per clinical course of the patient DVT prophylaxis: Subcutaneous heparin GI Prophylaxis: Pepcid
[2022-09-03] MEDS: methylPREDNISolone SOD SUCCI 125 MG/2 ML VIAL IV SCH ×3 (06:48→17:51)
[2022-09-03] MEDS: SYMBICORT 160-4.5 MCG INHALER INHALATION SCH ×2 (07:14→20:00)
[2022-09-03] MEDS: IPRATROPIUM-ALBUTEROL 3 ML NEB INHALATION SCH ×4 (07:14→20:00)
[2022-09-03] MEDS ORDERED: DEXTROSE 50% SYRINGE 50 ML IVP PRN ×2 (07:20)
[2022-09-03 07:38] LABS: Glucose,Whole Blood 158 mg/dL (70-110)
[2022-09-03] MEDS: INSULIN ASPART (NovoLOG) 100 UNIT/ML VIAL SQ SCH ×4 (08:14→20:23)
[2022-09-03] MEDS: HEPARIN SODIUM,PORCINE/PF 5,000 UNIT/0.5 ML SYRINGE SQ SCH ×3 (08:15→16:00)
[2022-09-03] MEDS: FAMOTIDINE 20 MG/2 ML VIAL IV SCH ×2 (08:54→20:23)
[2022-09-03 09:17] LABS: Basophils # (A) 0.01 X 10*3/uL (0.00-0.10); Basophils % (A) 0.1 %; Eosinophils # (A) 0 X 10*3/uL (0.04-0.35); Eosinophils % (A) 0 %; HGB 13.4 g/dL (13.0-17.0); Immature Grans, Automated 0.5 %; Lymphocytes # (A) 0.37 X 10*3/uL (0.90-5.00); MCH 29.8 pg (27.0-32.0); MCHC 32.7 g/dL (32.0-37.0); MCV 91.1 fL (80.0-97.0); Mean Platelet Volume 11.3 fL (9.5-12.2); Monocytes # (A) 0.27 X 10*3/uL (0.20-1.00); Monocytes % (A) 2.2 %; NRBC Per 100 WBC 0 /100 WBCS (0.0-0.0); Neutrophils # (A) 11.68 X 10*3/uL (1.80-7.70); Neutrophils % (A) 94.2 %; Platelet Count 216 X 10*3/uL (140-440); RDW 12.5 % (11.5-14.5); WBC 12.39 X 10*3/uL (4.50-10.00)
[2022-09-03] MEDS: ALPRAZolam 0.25 MG TAB PO PRN ×2 (09:34→20:25)
[2022-09-03] MEDS: DOXYCYCLINE 100 MG CAP PO SCH ×2 (09:34→20:25)
[2022-09-03 09:35] LABS: African American GFR (CKD) 114.9 (60.0-200.0); Anion Gap 11.8 mmol/L (10.00-18.00); BUN/Creat Ratio 21.88 Ratio (12.00-20.00); Blood Urea Nitrogen 17.5 mg/dL (9.0-27.0); Calcium 9.9 mg/dL (8.7-10.3); Carbon Dioxide 25.2 mmol/L (20.0-27.5); Non-African American GFR(CKD) 99.2 (60.0-200.0); Potassium 4.6 mmol/L (3.5-5.5)
[2022-09-03] MEDS: NICOTINE 14MG/24HR PATCH TRANSDERM SCH (09:35)
[2022-09-03 12:05] LABS: Glucose,Whole Blood 163 mg/dL (70-110)
--- NOTE | 2022-09-03 12:41 | P.PN ---
Subjective Progress Note Date: 09/03/22 This is a 57-year-old mentation, chronic smoker , smoked since the age of 16 approximately one pack of cigarettes a day and recently is trying to slow down his smoking down to half pack of cigarettes a day. Denies having any childhood asthma. Works locally at [employer]. 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 His active. He has noted some worsening shortness of breath. Patient initially went to the urgent care with difficulty in breathing. He stated that he has been coughing for the past 3 days and subsequently became progressively more short of breath. He woke up today and he was unable to walk more than 100 feet. He had difficulties in emptying his lung with exhalation. He has also exhalation wheeze. He was short of breath and his pulse ox was 89% on initial evaluation at the urgent care. After resting, his pulse ox came up to 94%. Currently is on room air oxygen and he is pulse ox is 95%. No angina. No pleurisy. No swelling lower extremities. No soreness in his throat. He is complaining of some occasional headache. I reviewed the records from the urgent care. The chest x-ray was done there and apparently showed no acute abnormalities. A repeat chest x-ray was done in our hospital indicating COPD without any other acute changes. In terms of his blood work, the patient has a white cell count of 8.2 with a hemoglobin of 14.6 and a platelet count of 191. Normal coagulation profile. Normal electrolytes. Normal LFTs. His influenza a and B were negative. His Covid 19 testing was negative. The patient states that he has been vaccinated for Covid 19 and he has not her been infected. He does not utilize any form of respiratory medications or inhalers on outpatient basis. Today's evaluation of 09/03/2022, the patient denies having any significant improvement in his breathing. He still short of breath bronchospastic and wheezy. He remains on Symbicort as maintenance and is also using DuoNeb neb blotchiness 4 times a day. He is on IV Solu-Medrol which has resulted into some mild hyperglycemia. Most of the history and production. No chest pain. He is getting his malaise medication on a regular basis. His Covid 19 testing was negative. His pro calcitonin was negative. He is on doxycycline as an empiric antibiotic coverage. Objective - Vital Signs Vital signs: Vital Signs Temp 97.4 F L 09/03/22 06:37 Pulse 76 09/03/22 07:24 Resp 16 09/03/22 06:37 BP 130/81 09/03/22 06:37 Pulse Ox 89 L 09/03/22 06:37 FiO2 Intake & Output 09/02/22 09/03/22 09/03/22 18:59 06:59 18:59 Intake Total 120 Balance 120 Weight 102.058 kg Intake: Oral 120 Other: Voiding Method Toilet Toilet # Voids 1 - Exam The patient appeared well nourished and normally developed. Vital signs as documented. Head exam is unremarkable. No scleral icterus or corneal arcus noted. Neck is without jugular venous distension, thyromegaly, or carotid bruits. Carotid upstrokes are brisk bilaterally. Lungs reveal diminished breath sounds bilaterally and the patient has very prolonged exhalation phase of breathing and exhalation wheezing heard throughout the lung acharya bilaterally.. Cardiac exam reveals the PMI to be normally sized and situated. Rhythm is regular. First and second heart sounds normal. No murmurs, rubs or gallops. Abdominal exam reveals normal bowel sounds, no masses, no organomegaly and no ao rtic enlargement. Extremities are nonedematous and both femoral and pedal pulses are normal.Examination of the skin revealed no evidence of significant rashes, suspicious appearing nevi or other concerning lesions.Neurologically, the patient is awake and alert and the patient does not have any focal neurological deficit. Cranial nerves are essentially intact. - Labs CBC & Chem 7: 09/03/22 05:07 09/03/22 05:07 Labs: Abnormal Lab Results - Last 24 Hours (Table) 09/03/22 09/03/22 09/03/22 Range/Units 05:07 05:07 07:37 WBC 12.39 H (4.50-10.00) X 10*3/uL Immature Gran # 0.06 H (0.00-0.04) X 10*3/uL Neutrophils # 11.68 H (1.80-7.70) X 10*3/uL Lymphocytes # 0.37 L (0.90-5.00) X 10*3/uL Eosinophils # 0 L (0.04-0.35) X 10*3/uL BUN/Creatinine Ratio 21.88 H (12.00-20.00) Ratio Glucose 162 H (70-110) mg/dL POC Glucose (mg/dL) 158 H (70-110) mg/dL 09/03/22 Range/Units 12:03 WBC (4.50-10.00) X 10*3/uL Immature Gran # (0.00-0.04) X 10*3/uL Neutrophils # (1.80-7.70) X 10*3/uL Lymphocytes # (0.90-5.00) X 10*3/uL Eosinophils # (0.04-0.35) X 10*3/uL BUN/Creatinine Ratio (12.00-20.00) Ratio Glucose (70-110) mg/dL POC Glucose (mg/dL) 163 H (70-110) mg/dL Assessment and Plan Plan: Acute COPD exacerbation, rule out tracheobronchitis, no indication for any underlying pneumonia Acute shortness of breath secondary to above Acute hypoxic respiratory failure, improved and the patient's current pulse ox is 95% on room air oxygen Chronic smoker Hypertension Plan Limited improvement if any We'll continue same treatment DuoNeb neb treatments [id number] IV Solu-Medrol 60 mg every 6 hours Symbicort as maintenance 2 puffs twice a day Doxycycline as an empiric antibiotic coverage We'll monitor his progress. Will need outpatient follow-up including a PFT and further adjustment in his respiratory medication. Very important to quit smoking as soon as possible. Nicotine patch Check d-dimer is low Check pro calcitonin level is low
[2022-09-03 16:59] LABS: Glucose,Whole Blood 158 mg/dL (70-110)
[2022-09-03] MEDS ORDERED: ACETAMINOPHEN TAB 325 MG TAB PO PRN (18:39)
[2022-09-03 20:01] LABS: Glucose,Whole Blood 178 mg/dL (70-110)
[2022-09-04] MEDS: methylPREDNISolone SOD SUCCI 125 MG/2 ML VIAL IV SCH ×4 (00:39→19:55)
[2022-09-04] MEDS: HEPARIN SODIUM,PORCINE/PF 5,000 UNIT/0.5 ML SYRINGE SQ SCH ×3 (00:39→19:17)
[2022-09-04 05:47] LABS: Glucose,Whole Blood 154 mg/dL (70-110)
[2022-09-04] MEDS: INSULIN ASPART (NovoLOG) 100 UNIT/ML VIAL SQ SCH ×4 (06:03→22:20)
[2022-09-04] MEDS: SYMBICORT 160-4.5 MCG INHALER INHALATION SCH ×2 (08:01→20:20)
[2022-09-04] MEDS: IPRATROPIUM-ALBUTEROL 3 ML NEB INHALATION SCH ×4 (08:01→20:20)
[2022-09-04] MEDS: DOXYCYCLINE 100 MG CAP PO SCH ×2 (08:43→22:21)
[2022-09-04] MEDS: ALPRAZolam 0.25 MG TAB PO PRN ×2 (08:44→22:23)
[2022-09-04] MEDS: FAMOTIDINE 20 MG/2 ML VIAL IV SCH ×2 (09:59→22:21)
[2022-09-04] MEDS: NICOTINE 14MG/24HR PATCH TRANSDERM SCH (10:09)
[2022-09-04 12:12] LABS: Glucose,Whole Blood 138 mg/dL (70-110)
--- NOTE | 2022-09-04 14:26 | P.PN ---
Subjective Progress Note Date: 09/04/22 Principal diagnosis: Shortness of breath. This is a 57-year-old mentation, chronic smoker , smoked since the age of 16 approximately one pack of cigarettes a day and recently is trying to slow down his smoking down to half pack of cigarettes a day. Denies having any childhood asthma. Works locally at [employer]. 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 He has noted some worsening shortness of breath. Patient initially went to the urgent care with difficulty in breathing. He stated that he has been coughing for the past 3 days and subsequently became progressively more short of breath. He woke up today and he was unable to walk more than 100 feet. He had difficulties in emptying his lung with exhalation. He has also exhalation wheeze. He was short of breath and his pulse ox was 89% on initial evaluation at the urgent care. After resting, his pulse ox came up to 94%. Currently is on room air oxygen and he is pulse ox is 95%. No angina. No pleurisy. No swelling lower extremities. No soreness in his throat. He is complaining of some occasional headache. I reviewed the records from the urgent care. The chest x-ray was done there and apparently showed no acute abnormalities. A repeat chest x-ray was done in our hospital indicating COPD without any other acute changes. In terms of his blood work, the patient has a white cell count of 8.2 with a hemoglobin of 14.6 and a platelet count of 191. Normal coagulation profile. Normal electrolytes. Normal LFTs. His influenza a and B were negative. His Covid 19 testing was negative. The patient states that he has been vaccinated for Covid 19 and he has not her been infected. He does not utilize any form of respiratory medications or inhalers on outpatient basis. Today's evaluation of 09/03/2022, the patient denies having any significant improvement in his breathing. He still short of breath bronchospastic and wheezy. He remains on Symbicort as maintenance and is also using DuoNeb neb bl otchiness 4 times a day. He is on IV Solu-Medrol which has resulted into some mild hyperglycemia. Most of the history and production. No chest pain. He is getting his malaise medication on a regular basis. His Covid 19 testing was negative. His pro calcitonin was negative. He is on doxycycline as an empiric antibiotic coverage. Progress note dated 09/04/2022. This is a 57-year-old male patient seen by my partner 2 days ago in consultation. He has a history of chronic tobacco use, having started smoking at the age of 16. The patient is currently on 2 L. He's not receiving any IV fluids. He does feel better. He was hoping to be able to be discharged home today. He may need home oxygen. No new labs today other than a glucose of 138. Chest x-ray shows only changes of COPD. Objective - Vital Signs Vital signs: Vital Signs Temp 97.8 F 09/04/22 07:00 Pulse 88 09/04/22 12:14 Resp 18 09/04/22 07:00 BP 127/85 09/04/22 07:00 Pulse Ox 95 09/04/22 11:02 FiO2 Intake & Output 09/03/22 09/04/22 09/04/22 18:59 06:59 18:59 Intake Total 118 Output Total 3 Balance 115 Intake: Oral 118 Output: Urine 3 Other: Voiding Method Toilet # Voids 1 - Exam No acute distress, oriented 3. Currently on 2 L of oxygen. No conversational dyspnea, or use of accessory muscles. No audible wheezing noted. HEENT examination is grossly unremarkable. Neck supple. Full range of motion. No adenopathy thyromegaly or neck vein distention. Cardiovascular examination reveals regular rhythm rate. S1-S2 normal. No S3 or S4. No discernible murmur noted. Heart rate 88 bpm. Lungs reveal scattered expiratory wheezes and rhonchi. Breath sounds are diminished. Saturations are 98%. No crackles. Abdomen soft bowel sounds are heard. No masses or tenderness. Extremities are intact. No cyanosis clubbing or edema. Skin is without rash or lesion. Neurologic examination is brief but nonfocal. - Labs CBC & Chem 7: 09/03/22 05:07 09/03/22 05:07 Labs: Abnormal Lab Results - Last 24 Hours (Table) 09/03/22 09/03/22 09/04/22 Range/Units 16:58 20:00 05:45 POC Glucose (mg/dL) 158 H 178 H 154 H (70-110) mg/dL 09/04/22 Range/Units 12:11 POC Glucose (mg/dL) 138 H (70-110) mg/dL Assessment and Plan Assessment: Acute COPD exacerbation, possibly complicated by tracheobronchitis. Acute hypoxemic respiratory failure. Chronic tobacco user. History of hypertension. Plan: Plan dated 09/04/2022. The patient continues on albuterol sulfate and ipratropium bromide, 4 times a day and when necessary. The patient is also on Solu-Medrol, 60 mg every 6, and a nicotine patch. The patient also continues on Symbicort, 160/4.5, 2 puffs twice a day, and doxycycline 100 mg twice a day. The patient could be considered for possible discharge. Home oxygen. He needs to follow-up with my partner in the office. He'll need complete pulmonary function testing. Time with Patient: Less than 30
[2022-09-04 17:07] LABS: Glucose,Whole Blood 124 mg/dL (70-110)
[2022-09-04 21:39] LABS: Glucose,Whole Blood 135 mg/dL (70-110)
[2022-09-05] MEDS: HEPARIN SODIUM,PORCINE/PF 5,000 UNIT/0.5 ML SYRINGE SQ SCH ×3 (00:59→15:13)
[2022-09-05] MEDS: methylPREDNISolone SOD SUCCI 125 MG/2 ML VIAL IV SCH ×3 (01:00→14:50)
[2022-09-05] MEDS: INSULIN ASPART (NovoLOG) 100 UNIT/ML VIAL SQ SCH ×4 (06:05→20:22)
[2022-09-05 06:14] LABS: Glucose,Whole Blood 149 mg/dL (70-110)
[2022-09-05] MEDS: NICOTINE 14MG/24HR PATCH TRANSDERM SCH (08:18)
[2022-09-05] MEDS: FAMOTIDINE 20 MG/2 ML VIAL IV SCH (08:18)
[2022-09-05] MEDS: IPRATROPIUM-ALBUTEROL 3 ML NEB INHALATION SCH ×4 (08:27→20:56)
[2022-09-05] MEDS: SYMBICORT 160-4.5 MCG INHALER INHALATION SCH ×2 (08:28→20:56)
[2022-09-05] MEDS: DOXYCYCLINE 100 MG CAP PO SCH ×2 (09:02→20:16)
[2022-09-05] MEDS: ALPRAZolam 0.25 MG TAB PO PRN ×2 (09:02→20:19)
[2022-09-05 12:14] LABS: Glucose,Whole Blood 117 mg/dL (70-110)
--- NOTE | 2022-09-05 12:19 | PN ---
PROGRESS NOTE DATE OF SERVICE: 09/04/2022 CHIEF COMPLAINT: COPD. HISTORY OF PRESENT ILLNESS: This gentleman feels fairly well and it was thought that he might be able to be discharged. However, whenever he got up, he became extremely short of breath with very little activity and even standing still. His pulse ox dropped down to 87. REVIEW OF SYSTEMS: He has had no chest pain, fever, chills, etc. Past medical history, family history, and personal and social histories are all otherwise unremarkable and noncontributory. PHYSICAL EXAMINATION: CHEST: Breath sounds are diminished with scattered rales and rhonchi. CARDIAC: Normal. ABDOMEN: Soft, nontender. IMPRESSION: Exacerbated chronic obstructive pulmonary disease. PLAN: Continue with inpatient management for at least another day. MMODL / HENNYN: [id number] /
--- NOTE | 2022-09-05 12:21 | P.PN ---
Subjective Progress Note Date: 09/05/22 Principal diagnosis: Shortness of breath. This is a 57-year-old mentation, chronic smoker , smoked since the age of 16 approximately one pack of cigarettes a day and recently is trying to slow down his smoking down to half pack of cigarettes a day. Denies having any childhood asthma. Works locally at [employer]. 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 He has noted some worsening shortness of breath. Patient initially went to the urgent care with difficulty in breathing. He stated that he has been coughing for the past 3 days and subsequently became progressively more short of breath. He woke up today and he was unable to walk more than 100 feet. He had difficulties in emptying his lung with exhalation. He has also exhalation wheeze. He was short of breath and his pulse ox was 89% on initial evaluation at the urgent care. After resting, his pulse ox came up to 94%. Currently is on room air oxygen and he is pulse ox is 95%. No angina. No pleurisy. No swelling lower extremities. No soreness in his throat. He is complaining of some occasional headache. I reviewed the records from the urgent care. The chest x-ray was done there and apparently showed no acute abnormalities. A repeat chest x-ray was done in our hospital indicating COPD without any other acute changes. In terms of his blood work, the patient has a white cell count of 8.2 with a hemoglobin of 14.6 and a platelet count of 191. Normal coagulation profile. Normal electrolytes. Normal LFTs. His influenza a and B were negative. His Covid 19 testing was negative. The patient states that he has been vaccinated for Covid 19 and he has not her been infected. He does not utilize any form of respiratory medications or inhalers on outpatient basis. Today's evaluation of 09/03/2022, the patient denies having any significant improvement in his breathing. He still short of breath bronchospastic and wheezy. He remains on Symbicort as maintenance and is also using DuoNeb neb bl otchiness 4 times a day. He is on IV Solu-Medrol which has resulted into some mild hyperglycemia. Most of the history and production. No chest pain. He is getting his malaise medication on a regular basis. His Covid 19 testing was negative. His pro calcitonin was negative. He is on doxycycline as an empiric antibiotic coverage. Progress note dated 09/04/2022. This is a 57-year-old male patient seen by my partner 2 days ago in consultation. He has a history of chronic tobacco use, having started smoking at the age of 16. The patient is currently on 2 L. He's not receiving any IV fluids. He does feel better. He was hoping to be able to be discharged home today. He may need home oxygen. No new labs today other than a glucose of 138. Chest x-ray shows only changes of COPD. Progress note dated 09/05/2022. 57-year-old male patient seen in room 634. He was seen by my partner in consultation at couple days ago. He has a history of chronic tobacco use, having started smoking at the age of 16. The patient is currently on a couple liters of oxygen. I thought the patient could be discharged, but apparently he was not. He likely would have to be discharged home on oxygen, at least for a period of time. He will need outpatient evaluation once he is discharged. No new labs today. Glucose was 117. Objective - Vital Signs Vital signs: Vital Signs Temp 98 F 09/05/22 06:56 Pulse 92 09/05/22 12:11 Resp 18 09/05/22 06:56 BP 159/89 09/05/22 06:56 Pulse Ox 94 L 09/05/22 06:56 FiO2 Intake & Output 09/04/22 09/05/22 09/05/22 18:59 06:59 18:59 Intake Total 240 Output Total 3 Balance -3 240 Intake: Oral 240 Output: Urine 3 Other: Voiding Method Toilet # Voids 1 2 - Exam No acute distress, oriented 3. Currently on 3 L of oxygen. No conversational dyspnea, or use of accessory muscles. No audible wheezing noted. HEENT examination is grossly unremarkable. Neck supple. Full range of motion. No adenopathy thyromegaly or neck vein distention. Cardiovascular examination reveals regular rhythm rate. S1-S2 normal. No S3 or S4. No discernible murmur noted. Heart rate 90 bpm. Lungs reveal scattered expiratory wheezes and rhonchi. Breath sounds are diminished. Saturations are 96 %. No crackles. Abdomen soft bowel sounds are heard. No masses or tenderness. Extremities are intact. No cyanosis clubbing or edema. Skin is without rash or lesion. Neurologic examination is brief but nonfocal. - Labs CBC & Chem 7: 09/03/22 05:07 09/03/22 05:07 Labs: Abnormal Lab Results - Last 24 Hours (Table) 09/04/22 09/04/22 09/05/22 Range/Units 17:05 21:35 06:04 POC Glucose (mg/dL) 124 H 135 H 149 H (70-110) mg/dL 09/05/22 Range/Units 12:12 POC Glucose (mg/dL) 117 H (70-110) mg/dL Assessment and Plan Assessment: Acute COPD exacerbation, possibly complicated by tracheobronchitis. Acute hypoxemic respiratory failure. Chronic tobacco user. History of hypertension. Plan: Plan dated 09/04/2022. The patient continues on albuterol sulfate and ipratropium bromide, 4 times a day and when necessary. The patient is also on Solu-Medrol, 60 mg every 6, and a nicotine patch. The patient also continues on Symbicort, 160/4.5, 2 puffs twice a day, and doxycycline 100 mg twice a day. The patient could be considered for possible discharge. Home oxygen. He needs to follow-up with my partner in the office. He'll need complete pulmonary function testing. Plan dated 09/05/2022. The patient in my opinion could be discharged home. The patient will likely need home oxygen for appear to time. He'll need outpatient evaluation, and complete pulmonary function test. The patient should follow with my partner, Dr. Pollard. No additional recommendations are made. Prognosis is guarded. The patient's counseled about the importance of smoking cessation. Today we stop the Solu-Medrol and start the patient on prednisone 40 mg a day. He only needs a short course of antibiotics. Additional recommendations and suggestions are forthcoming. Time with Patient: Less than 30
--- NOTE | 2022-09-05 15:14 | XR ---
EXAMINATION TYPE: XR chest 1V portable DATE OF EXAM: 09/05/2022 HISTORY: Shortness of breath. COMPARISON: 09/02/2022 TECHNIQUE: Single view of the chest is submitted. FINDINGS: Demonstrated are scattered senescent parenchymal change. There is no evidence for focal infiltrate. The heart is stable. Hilar and mediastinal structures are within normal limits. Degenerative changes are seen of the dorsal spine. IMPRESSION: 1. Chronic changes without evidence for acute pulmonary disease.
[2022-09-05 17:24] LABS: Glucose,Whole Blood 147 mg/dL (70-110)
[2022-09-05] MEDS: FAMOTIDINE 20 MG TAB PO SCH (20:17)
[2022-09-05 20:21] LABS: Glucose,Whole Blood 213 mg/dL (70-110)
[2022-09-05 21:12] VITALS: RESP 18
[2022-09-06] MEDS ORDERED: predniSONE 20 MG TAB PO SCH (09:00)
[2022-09-06] MEDS: IPRATROPIUM-ALBUTEROL 3 ML NEB INHALATION SCH ×2 (09:41→12:32)
[2022-09-06] MEDS: SYMBICORT 160-4.5 MCG INHALER INHALATION SCH (09:41)
[2022-09-06] MEDS: HEPARIN SODIUM,PORCINE/PF 5,000 UNIT/0.5 ML SYRINGE SQ SCH ×2 (09:58)
[2022-09-06] MEDS: INSULIN ASPART (NovoLOG) 100 UNIT/ML VIAL SQ SCH ×2 (09:58→13:41)
[2022-09-06] MEDS: FAMOTIDINE 20 MG TAB PO SCH (09:58)
[2022-09-06] MEDS: NICOTINE 14MG/24HR PATCH TRANSDERM SCH (09:58)
[2022-09-06] MEDS: DOXYCYCLINE 100 MG CAP PO SCH (09:58)
[2022-09-06 11:37] LABS: Glucose,Whole Blood 89 mg/dL (70-110)
--- NOTE | 2022-09-06 11:56 | P.PN ---
Subjective Progress Note Date: 09/06/22 Principal diagnosis: Shortness of breath. This is a 57-year-old mentation, chronic smoker , smoked since the age of 16 approximately one pack of cigarettes a day and recently is trying to slow down his smoking down to half pack of cigarettes a day. Denies having any childhood asthma. Works locally at [employer]. 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 His active. He has noted some worsening shortness of breath. Patient initially went to the urgent care with difficulty in breathing. He stated that he has been coughing for the past 3 days and subsequently became progressively more short of breath. He woke up today and he was unable to walk more than 100 feet. He had difficulties in emptying his lung with exhalation. He has also exhalation wheeze. He was short of breath and his pulse ox was 89% on initial evaluation at the urgent care. After resting, his pulse ox came up to 94%. Currently is on room air oxygen and he is pulse ox is 95%. No angina. No pleurisy. No swelling lower extremities. No soreness in his throat. He is complaining of some occasional headache. I reviewed the records from the urgent care. The chest x-ray was done there and apparently showed no acute abnormalities. A repeat chest x-ray was done in our hospital indicating COPD without any other acute changes. In terms of his blood work, the patient has a white cell count of 8.2 with a hemoglobin of 14.6 and a platelet count of 191. Normal coagulation profile. Normal electrolytes. Normal LFTs. His influenza a and B were negative. His Covid 19 testing was negative. The patient states that he has been vaccinated for Covid 19 and he has not her been infected. He does not utilize any form of respiratory medications or inhalers on outpatient basis. Today's evaluation of 09/03/2022, the patient denies having any significant improvement in his breathing. He still short of breath bronchospastic and wheezy. He remains on Symbicort as maintenance and is also using DuoNeb neb bl otchiness 4 times a day. He is on IV Solu-Medrol which has resulted into some mild hyperglycemia. Most of the history and production. No chest pain. He is getting his malaise medication on a regular basis. His Covid 19 testing was negative. His pro calcitonin was negative. He is on doxycycline as an empiric antibiotic coverage. Progress note dated 09/04/2022. This is a 57-year-old male patient seen by my partner 2 days ago in consultation. He has a history of chronic tobacco use, having started smoking at the age of 16. The patient is currently on 2 L. He's not receiving any IV fluids. He does feel better. He was hoping to be able to be discharged home today. He may need home oxygen. No new labs today other than a glucose of 138. Chest x-ray shows only changes of COPD. Progress note dated 09/05/2022. 57-year-old male patient seen in room 634. He was seen by my partner in consultation at couple days ago. He has a history of chronic tobacco use, having started smoking at the age of 16. The patient is currently on a couple liters of oxygen. I thought the patient could be discharged, but apparently he was not. He likely would have to be discharged home on oxygen, at least for a period of time. He will need outpatient evaluation once he is discharged. No new labs today. Glucose was 117. Progress note dated 09/06/2022. 57-year-old male seen in room 634. He is on 2 L of oxygen. The patient's feeling much better. In my opinion, the patient could be considered for possible discharge. He states that his breathing is much improved including a shortness breath chest tightness and wheezing. The patient has been smoking since the age of 16. No new laboratory data today other than a glucose of 89. The chest x-ray from yesterday showed only chronic changes, nothing acute. Objective - Vital Signs Vital signs: Vital Signs Temp 97.8 F 09/06/22 08:00 Pulse 90 09/06/22 08:45 Resp 18 09/06/22 08:00 BP 158/82 09/06/22 08:00 Pulse Ox 94 L 09/06/22 08:00 FiO2 Intake & Output 09/05/22 09/06/22 09/06/22 18:59 06:59 18:59 Intake Total 480 240 Balance 480 240 Intake: Oral 480 240 Other: Voiding Method Toilet Toilet # Voids 3 1 - Exam No acute distress, oriented 3. Currently on 2 L of oxygen. No conversational dyspnea, or use of accessory muscles. No audible wheezing noted. HEENT examination is grossly unremarkable. Neck supple. Full range of motion. No adenopathy thyromegaly or neck vein distention. Cardiovascular examination reveals regular rhythm rate. S1-S2 normal. No S3 or S4. No discernible murmur noted. Heart rate 98 bpm. Lungs reveal scattered expiratory wheezes and rhonchi. Breath sounds are diminished. Saturations are 94 %. No crackles. Abdomen soft bowel sounds are heard. No masses or tenderness. Extremities are intact. No cyanosis clubbing or edema. Skin is without rash or lesion. Neurologic examination is brief but nonfocal. - Labs CBC & Chem 7: 09/03/22 05:07 09/03/22 05:07 Labs: Abnormal Lab Results - Last 24 Hours (Table) 09/05/22 09/05/22 09/05/22 Range/Units 12:12 17:19 20:20 POC Glucose (mg/dL) 117 H 147 H 213 H (70-110) mg/dL Assessment and Plan Assessment: Acute COPD exacerbation, possibly complicated by tracheobronchitis. Acute hypoxemic respiratory failure. Chronic tobacco user. History of hypertension. Plan: Plan dated 09/04/2022. The patient continues on albuterol sulfate and ipratropium bromide, 4 times a day and when necessary. The patient is also on Solu-Medrol, 60 mg every 6, and a nicotine patch. The patient also continues on Symbicort, 160/4.5, 2 puffs twice a day, and doxycycline 100 mg twice a day. The patient could be considered for possible discharge. Home oxygen. He needs to follow-up with my partner in the office. He'll need complete pulmonary function testing. Plan dated 09/05/2022. The patient in my opinion could be discharged home. The patient will likely need home oxygen for appear to time. He'll need outpatient evaluation, and complete pulmonary function test. The patient should follow with my partner, Dr. Pollard. No additional recommendations are made. Prognosis is guarded. The patient's counseled about the importance of smoking cessation. Today we stop the Solu-Medrol and start the patient on prednisone 40 mg a day. He only needs a short course of antibiotics. Additional recommendations and suggestions are forthcoming. Plan dated 09/06/2022. The patient is going to be evaluated for the possibility of hormone toe. He'll have a resting room air saturation, and a saturation while walking up and down the hallway. He may require oxygen on discharge. The patient otherwise seems to be doing relatively well. He is anxious to get out of here. He promises me he never to smoke again. The patient will follow-up in the office. Additional recommendations and suggestions are forthcoming. Labs, x-rays, and medications are reviewed. Time with Patient: Less than 30
[2022-09-06 12:35] LABS: Glucose,Whole Blood 101 mg/dL (70-110)
[2022-09-06 14:15] VITALS: PULSE 81; TEMP 98.3
[2022-09-06 16:34] VITALS: BP 156/86
--- NOTE | 2022-09-06 18:23 | PN ---
PROGRESS NOTE DATE OF SERVICE: 09/05/2022 CHIEF COMPLAINT: Exacerbation of COPD. HISTORY OF PRESENT ILLNESS: This gentleman is still quite weak and quite dyspneic even with minimal movement around the room, especially when he removes his oxygen. PHYSICAL EXAMINATION: VITAL SIGNS: Normal. CHEST: Demonstrates scattered rales and occasional wheezes on both sides. CARDIAC: Normal. IMPRESSION: Exacerbation of chronic obstructive pulmonary disease. PLAN: Hold discharge for 1 more day. MMODL / IJN: [id number] /
--- NOTE | 2022-09-07 03:25 | DS ---
DISCHARGE SUMMARY CHIEF COMPLAINT: Difficulty breathing. HISTORY OF PRESENT ILLNESS AND PHYSICAL EXAMINATION: Details of this man's history and physical could be found in the initial workup. LABORATORY STUDIES: While he is in the hospital, he had laboratory studies, details of which could be found in the laboratory section of his chart. COURSE IN THE HOSPITAL: After admission, he was placed on bedrest and started on intravenous fluids and IV and inhaled steroids with updrafts. His shortness of breath and respiratory failure improved only slightly. Eventually, he was doing well enough that it was felt he could be discharged. He will go home on his usual activity, diet, and many of the medications that he was on before will be resumed. He will also be on an antibiotic and Medrol Dosepak and will be set up for home O2. FINAL DIAGNOSIS: Exacerbation of chronic obstructive pulmonary disease. OPERATIONS: None. CONSULTATION: Pulmonology, he is improved. MMODL / HENNYN: [id number] /
[2022-09-07] MEDS ORDERED: methylPREDNISolone 4 MG TAB TAPER PO SCH (09:00)
== END 2022-09-06 16:43 | disposition home or self-care (01) | DRG 190 ==
LOC: EC 09:11 → 6NMEDSUR 11:56 → OBSVTOIN 09-03 13:38
PROVIDERS: ADMIT Family Medicine; ATTEND Family Medicine
DX: J44.1 Chronic obstructive pulmonary disease with (acute) exacerbation (principal); J96.01 Acute respiratory failure with hypoxia; F12.10 Cannabis abuse, uncomplicated; F17.210 Nicotine dependence, cigarettes, uncomplicated; F32.A Depression, unspecified; F10.11 Alcohol abuse, in remission; F41.9 Anxiety disorder, unspecified; I10 Essential (primary) hypertension; Z20.822 Contact with and (suspected) exposure to COVID-19; Z71.51 Drug abuse counseling and surveillance of drug abuser; Z71.6 Tobacco abuse counseling
CPT/HCPCS: 36415; 71045; 71046; 80048; 80053; 83735; 84145; 85025; 85379; 85610; 85730; 87502; 87635; 93005; 94640; 94760; 96365; 96375; 99285

== ENCOUNTER → 2022-10-15 | Outpatient (CLI) | payer OTHER ==
--- NOTE | 2022-10-15 14:51 | CT ---
EXAMINATION TYPE: CT abdomen pelvis wo/w con DATE OF EXAM: 10/15/2022 COMPARISON: CT abdomen and pelvis April 19, 2015 HISTORY: RLQ pain, groin area. Hx hernia RT side CT DLP: 2209 mGycm, Automated Exposure Control for Dose Reduction was Utilized. CONTRAST: CT scan of the abdomen and pelvis is performed with oral and without and with IV Contrast, patient in jected with 70 mL of Isovue 300. FINDINGS: LUNG BASES: No significant abnormality is appreciated. LIVER/GB: No significant abnormality is appreciated. PANCREAS: Surgical clip or focal calcification at level of uncinate process of the pancreas on axial image 28 is redemonstrated. Occasional punctate calcification throughout the pancreas redemonstrated. SPLEEN: No significant abnormality is seen. ADRENALS: No significant abnormality is seen. KIDNEYS: No renal stones on noncontrast images. Postcontrast images show symmetric corticomedullary uptake and excretion without hydronephrosis seen bilaterally. BOWEL: Oral contrast reaches level of the splenic flexure. Normal contrast-filled appendix is seen fr om the base of the cecum. Occasional sigmoid colonic diverticula. No CT evidence for acute diverticul itis. PROSTATE/SEMINAL VESICLES: Normal-sized prostate. Scattered right-sided pelvic phleboliths. LYMPH NODES: No greater than 1cm abdominal or pelvic lymph nodes are appreciated. OSSEOUS STRUCTURES: Slight underlying scoliotic curvature redemonstrated. OTHER: Stable small fat-containing bilateral inguinal hernias. IMPRESSION: No significant new or acute finding is seen to account for patient's clinical symptoms.
== END | disposition home or self-care (01) ==
LOC: RADCTMAIN 11:44
PROVIDERS: ATTEND Family Medicine
DX: R10.31 Right lower quadrant pain (principal)
CPT/HCPCS: 74178; Q9967

== ENCOUNTER → 2022-10-29 | Outpatient (CLI) | payer OTHER ==
--- NOTE | 2022-10-29 13:36 | CT ---
EXAMINATION TYPE: CT pelvis wo con CT DLP: 575.5 mGycm, Automated exposure control for dose reduction was used. DATE OF EXAM: 10/29/2022 1:18 PM COMPARISON: CT abdomen pelvis most recent from 10/15/2022 CLINICAL INDICATION:Male, 57 years old with history of K40.91 R side hernia; right inguinal hernia TECHNIQUE: Axial CT of the pelvis. Sagittal and coronal reformats were created on a separate worksta tion. Contrast used: None Oral contrast used: without Oral Contrast FINDINGS: BLADDER: Unremarkable REPRODUCTIVE: Unremarkable. ABDOMEN & PELVIS STOMACH AND BOWEL: No evidence of bowel obstruction. Scattered clonic diverticula are present. PERITONEUM: No evidence of pneumoperitoneum or free fluid. VASCULATURE: No evidence of aortic aneurysm. Mild atherosclerosis changes. MUSCULOSKELETAL: No acute osseous abnormalities, mild degeneration changes of the distal spine. LYMPH NODES: No gross evidence for lymphadenopathy. SOFT TISSUE/ABDOMINAL WALL: Bilateral fat-containing inguinal hernias, these are unchanged from immed iate prior. IMPRESSION: 1. Bilateral fat-containing inguinal hernias. These are similar to prior on 10/15/2022.
== END | disposition home or self-care (01) ==
LOC: RADCTMAIN 12:56
PROVIDERS: ATTEND Family Medicine
DX: K40.20 Bilateral inguinal hernia, without obstruction or gangrene, not specified as recurrent (principal); R26.2 Difficulty in walking, not elsewhere classified
CPT/HCPCS: 72192

== ENCOUNTER → 2022-11-12 | Outpatient (CLI) | payer OTHER ==
[2022-11-12 20:19] LABS: Basophils # (A) 0.03 X 10*3/uL (0.00-0.10); Basophils % (A) 0.5 %; Eosinophils # (A) 0.24 X 10*3/uL (0.04-0.35); HCT 45.9 % (39.6-50.0); HGB 14.4 g/dL (13.0-17.0); Immature Grans, Automated 0.5 %; Lymphocytes # (A) 0.82 X 10*3/uL (0.90-5.00); Lymphocytes % (A) 13.6 %; MCH 29.8 pg (27.0-32.0); MCHC 31.4 g/dL (32.0-37.0); Mean Platelet Volume 10.8 fL (9.5-12.2); Monocytes # (A) 0.57 X 10*3/uL (0.20-1.00); Monocytes % (A) 9.4 %; NRBC Per 100 WBC 0 /100 WBCS (0.0-0.0); Neutrophils # (A) 4.35 X 10*3/uL (1.80-7.70); Platelet Count 228 X 10*3/uL (140-440); RBC 4.83 X 10*6/uL (4.40-5.60); WBC 6.04 X 10*3/uL (4.50-10.00)
== END | disposition home or self-care (01) ==
LOC: LABPAT 12:06
PROVIDERS: ATTEND Surgery
DX: Z01.812 Encounter for preprocedural laboratory examination (principal); K40.20 Bilateral inguinal hernia, without obstruction or gangrene, not specified as recurrent
CPT/HCPCS: 85025

== ENCOUNTER 2022-11-16 22:57 | Emergency (ER) | payer OTHER ==
[2022-11-16 23:05] VITALS: BP 146/81; PULSE 109; RESP 16; TEMP 99.5
[2022-11-16] MEDS ORDERED: KETOROLAC 15 MG/ML 1 ML VIAL IVP STA (23:13)
[2022-11-16] MEDS ORDERED: SODIUM CHLORIDE 0.9% 1,000 ML IV STA (23:13)
--- NOTE | 2022-11-16 23:24 | ED ---
SOB HPI - General Chief Complaint: Shortness of Breath Stated Complaint: SOB Time Seen by Provider: 11/16/22 23:06 Source: patient, EMS Mode of arrival: EMS Limitations: no limitations - History of Present Illness Initial Comments: Patient is a 53-year-old male presented to the emergency room via EMS with complaints of increased shortness of breath, hot flashes (he believes that he has had fevers but does not have a thermometer), generalized malaise, headache and occasional brain fogginess all ongoing for approximately 3 days. He states that he has been taking his Symbicort and utilizing his rescue inhaler as prescribed without any improvement in symptoms. He was hospitalized in September for COPD exacerbation and was discharged home with oxygen. He states that he utilize oxygen over the last 2 days as well without any improvement in his symptoms. He reports known exposure to Covid multiple times over the past week. He had his initial Covid vaccinations but has not had any boosters. He denies any chest pain, abdominal pain, nausea, vomiting or diarrhea. In addition to his COPD history he has a past medical history significant for hypertension. - Related Data Home Medications Medication Instructions Recorded Confirmed HYDROcodone/APAP 5-325MG [Riley 1 tab PO Q12H PRN 11/13/22 11/13/22 5-325] Ibuprofen [Motrin] 800 mg PO Q8H PRN 11/13/22 11/13/22 Losartan Potassium 50 mg PO HS 11/13/22 11/13/22 traZODone HCL 100 mg PO HS 11/13/22 11/13/22 Previous Rx's Medication Instructions Recorded Budesonide-Formot 160-4.5 Mcg 2 puff INHALATION RT-BID #1 each 09/06/22 [Symbicort 160-4.5 Mcg Inhaler] traZODone HCL [Desyrel] 100 mg PO HS 7 Days #7 tab 11/17/22 Allergies Allergy/AdvReac Type Severity Reaction Status Date / Time No Known Allergies Allergy Verified 11/13/22 10:57 Review of Systems ROS Statement: Those systems with pertinent positive or pertinent negative responses have been documented in the HPI. ROS Other: All systems not noted in ROS Statement are negative. Past Medical History Past Medical History: COPD, Hypertension Additional Past Medical History / Comment(s): astigmatism History of Any Multi-Drug Resistant Organisms: None Reported Past Surgical History: Hernia Repair Additional Past Surgical History / Comment(s): APRIL 2015 RIGHT ING. HERNIA REPAIR. lt cubital tunnel release-2013 Past Anesthesia/Blood Transfusion Reactions: No Reported Reaction Additional Past Anesthesia/Blood Transfusion Reaction / Comment(s): FAMILY HX UNK. PT ADOPTED Past Psychological History: Anxiety, Depression Past Drug Use History: None Reported - Past Family History Mother History Unknown: Yes Additional Family Medical History / Comment(s): ADOPTED General Exam - General Exam Comments Initial Comments: GENERAL: No acute distress, well developed, well nourished. HEENT: Normocephalic, atraumatic. Pupils equal, round, reactive to light. Moist mucous membranes. LUNGS: No respiratory distress. Diminished throughout otherwise clear to auscultation, no adventitious sounds, no use of accessory muscles. HEART: Mild tachycardia. Regular rhythm without murmur, rub, or gallop. ABDOMEN: Normal bowel sounds. Soft, non-tender, non-distended. BACK: Normal inspection. EXTREMITIES: No edema. No tenderness. Moves all extremities. NEUROLOGIC: Alert & oriented x 3. CN II-XII grossly intact. PSYCHIATRIC: Normal affect and behavior. DERMATOLOGIC: Skin intact, without rashes or lesions noted. Limitations: no limitations Course Vital Signs 11/16/22 23:04 Temperature 99.5 F Pulse Rate 109 H Respiratory 16 Rate Blood Pressure 146/81 O2 Sat by Pulse 94 L Oximetry Medical Decision Making - Medical Decision Making Was pt. sent in by a medical professional or institution ([facility], [employer], urgent care, hospital, or [facility]...) When possible be specific @ -No Did you speak to anyone other than the patient for history (EMS, parent, family, police, friend...)? What history was obtained from this source @ -EMS Did you review nursing and triage notes (agree or disagree)? Why? @ -I reviewed and agree with nursing and triage notes Were old charts reviewed (outside hosp., previous admission, EMS record, old EKG, old radiological studies, urgent care reports/EKG's, [facility] records)? Report findings @ -Recent hospitalization discharge, previous EKG Differential Diagnosis (chest pain, altered mental status, abdominal pain women, abdominal pain men, vaginal bleeding, weakness, fever, dyspnea, syncope, headache, dizziness, GI bleed, back pain, seizure, CVA, palpatations, mental health)? @ -Differential Dyspnea: Coronary syndrome, arrhythmia, tamponade, asthma, COPD, pulmonary embolism, p neumonia, pneumothorax, pulmonary effusion, anaphylaxis, diabetic ketoacidosis, flailed chest, pulmonary contusion, diaphragmatic rupture, anemia, neuromuscular, this is not meant to be an all-inclusive list. EKG interpreted by me (3pts min.). @ -Sinus tachycardia with incomplete right bundle branch block, ventricular rate 108 bpm, MO interval 163 ms, QRS duration 92 ms, QT/QTC 321/384 ms, PRT axes 82, 86, 84 X-rays interpreted by me (1pt min.). @ -Two-view chest x-ray demonstrates COPD, no acute infiltrates or conso lidations. CT interpreted by me (1pt min.). @ -None done U/S interpreted by me (1pt. min.). @ -None done What testing was considered but not performed or refused? (CT, X-rays, U/S, labs)? Why? @ -None What meds were considered but not given or refused? Why? @ -None Did you discuss the management of the patient with other professionals (professionals i.e. , PA, STAFF FORESTER, lab, RT, psych nurse, dialysis social worker, propulsion systems engineer, teacher, disbursing officer, rn case manager)? Give summary @ -No Was smoking cessation discussed for >3mins.? @ -MDM smoking sensation Was critical care preformed (if so, how long)? @ -No Were there social determinants of health that impacted care today? How? (Homelessness, low income, unemployed, alcoholism, drug addiction, transportation, low edu. Level, literacy, decrease access to med. care, alf, re hab)? @ -No Was there de-escalation of care discussed even if they declined (Discuss DNR or withdrawal of care, Hospice)? DNR status @ -No What co-morbidities impacted this encounter? (DM, HTN, Smoking, COPD, CAD, Cancer, CVA, ARF, Chemo, Hep., AIDS, mental health diagnosis, sleep apnea, morbid obesity)? @ -COPD Was patient admitted / discharged? Hospital course, mention meds given and route, prescriptions, significant lab abnormalities, going to OR and other pertinent info. @ - 57-year-old male presenting to the emergency room with complaints of increased shortness of breath, hot flashes (he believes that he has had fevers but does not have a thermometer), generalized malaise, headache and occasional brain fogginess. History of COPD and known exposure to COVID. Will begin workup for dyspnea with chest x-ray, EKG, CBC, CMP, stroke, lactic acid and coags along with 4-plex swab for viral etiology. Mild tachycardia noted will give IV fluid bolus.. Complaining of generalized body complaints and low-grade fever (99.5) noted will give Toradol as well. Heart rate and body aches improved with IV fluid bolus and Toradol. Chest x-ray negative for acute process. EKG shows mild sinus tachycardia, swab for Covid influenza and RSV negative. Lactic acid normal, troponin negative, coags normal, CBC unremarkable, CMP unremarkable. Findings discussed with patient at length. He reports that he is very concerned regarding his symptoms and feels like s omething is wrong. Further discussion found that he stopped taking his trazodone of 100 mg which he had been on approximately 24 hours before symptoms started due to running out of the medication. Will give dose of 100 mg of trazodone now and give short course of prescription to obtain in the morning for him to take until he is able to follow-up with his primary care provider. No indication for further diagnostic imaging or laboratory studies. Education regarding his COPD status, smoking sensation, and need to avoid abruptly stopping medications especially psychiatric medications. Return para meters to the emergency room reviewed at length. Questions and concerns answered. Will discharge home in stable condition with follow-up with his primary care provider. Undiagnosed new problem with uncertain prognosis? @ -No Drug Therapy requiring intensive monitoring for toxicity (Heparin, Nitro, Insulin, Cardizem)? @ -No Were any procedures done? @ -No Diagnosis/symptom? @ -Shortness of breath Acute, or Chronic, or Acute on Chronic? @ -Chronic Uncomplicated (without systemic symptoms) or Complicated (systemic symptoms)? @ -Uncomplicated Side effects of treatment? @ -No Exacerbation, Progression, or Severe Exacerbation? @ -No Poses a threat to life or bodily function? How? (Chest pain, [place], ME, pneumonia, PE, COPD, DKA, ARF, appy, cholecystitis, CVA, Diverticulitis, Homicidal, Suicidal, threat to staff... and all critical care pts) @ -No Diagnosis/symptom? @ -Anxiety with trazodone medication withdrawal Acute, or Chronic, or Acute on Chronic? @ -Acute on chronic Uncomplicated (without systemic symptoms) or Complicated (systemic symptoms)? @ -Uncomplicated Side effects of treatment? @ -none Exacerbation, Progression, or Severe Exacerbation] @ -no Poses a threat to life or bodily function? @ -no Case discussed with Dr. Boyce - Lab Data Result diagrams: 11/16/22 23:05 11/16/22 23:59 Lab Results 11/16/22 11/16/22 11/16/22 Range/Units 23:05 23:05 23:47 WBC 5.2 (3.8-10.6) k/uL RBC 4.80 (4.30-5.90) m/uL Hgb 14.7 (13.0-17.5) gm/dL Hct 43.2 (39.0-53.0) % MCV 89.9 (80.0-100.0) fL MCH 30.6 (25.0-35.0) pg MCHC 34.0 (31.0-37.0) g/dL RDW 12.8 (11.5-15.5) % Plt Count 180 (150-450) k/uL MPV 10.1 Neutrophils % 79 % Lymphocytes % 7 % Monocytes % 9 % Eosinophils % 1 % Basophils % 1 % Neutrophils # 4.1 (1.3-7.7) k/uL Lymphocytes # 0.4 L (1.0-4.8) k/uL Monocytes # 0.5 (0-1.0) k/uL Eosinophils # 0.1 (0-0.7) k/uL Basophils # 0.0 (0-0.2) k/uL PT 10.4 (9.0-12.0) sec INR 1.0 (<1.2) APTT 25.5 (22.0-30.0) sec Sodium (137-145) mmol/L Potassium (3.5-5.1) mmol/L Chloride (98-107) mmol/L Carbon Dioxide (22-30) mmol/L Anion Gap mmol/L BUN (9-20) mg/dL Creatinine (0.66-1.25) mg/dL Est GFR (CKD-EPI)AfAm (>60 ml/min/1.73 sqM) Est GFR (CKD-EPI)NonAf (>60 ml/min/1.73 sqM) Glucose (74-99) mg/dL Plasma Lactic Acid Anoop (0.7-2.0) mmol/L Calcium (8.4-10.2) mg/dL Total Bilirubin (0.2-1.3) mg/dL AST (17-59) U/L ALT (4-49) U/L Alkaline Phosphatase (38-126) U/L Troponin I (0.000-0.034) ng/mL Total Protein (6.3-8.2) g/dL Albumin (3.5-5.0) g/dL Influenza Type A (PCR) Not Detected (Not Detectd) Influenza Type B (PCR) Not Detected (Not Detectd) RSV (PCR) Not Detected (Not Detectd) SARS-CoV-2 (PCR) Not Detected (Not Detectd) 11/16/22 11/16/22 11/16/22 Range/Units 23:49 23:59 23:59 WBC (3.8-10.6) k/uL RBC (4.30-5.90) m/uL Hgb (13.0-17.5) gm/dL Hct (39.0-53.0) % MCV (80.0-100.0) fL MCH (25.0-35.0) pg MCHC (31.0-37.0) g/dL RDW (11.5-15.5) % Plt Count (150-450) k/uL MPV Neutrophils % % Lymphocytes % % Monocytes % % Eosinophils % % Basophils % % Neutrophils # (1.3-7.7) k/uL Lymphocytes # (1.0-4.8) k/uL Monocytes # (0-1.0) k/uL Eosinophils # (0-0.7) k/uL Basophils # (0-0.2) k/uL PT (9.0-12.0) sec INR (<1.2) APTT (22.0-30.0) sec Sodium 137 (137-145) mmol/L Potassium 3.5 (3.5-5.1) mmol/L Chloride 104 (98-107) mmol/L Carbon Dioxide 25 (22-30) mmol/L Anion Gap 8 mmol/L BUN 20 (9-20) mg/dL Creatinine 0.62 L (0.66-1.25) mg/dL Est GFR (CKD-EPI)AfAm >90 (>60 ml/min/1.73 sqM) Est GFR (CKD-EPI)NonAf >90 (>60 ml/min/1.73 sqM) Glucose 101 H (74-99) mg/dL Plasma Lactic Acid Anoop 0.8 (0.7-2.0) mmol/L Calcium 8.7 (8.4-10.2) mg/dL Total Bilirubin 0.4 (0.2-1.3) mg/dL AST 24 (17-59) U/L ALT 17 (4-49) U/L Alkaline Phosphatase 73 (38-126) U/L Troponin I <0.012 (0.000-0.034) ng/mL Total Protein 6.4 (6.3-8.2) g/dL Albumin 4.0 (3.5-5.0) g/dL Influenza Type A (PCR) (Not Detectd) Influenza Type B (PCR) (Not Detectd) RSV (PCR) (Not Detectd) SARS-CoV-2 (PCR) (Not Detectd) Disposition Clinical Impression: COPD (chronic obstructive pulmonary disease), Generalized anxiety disorder, Drug withdrawal Disposition: HOME SELF-CARE Condition: Stable Instructions (If sedation given, give patient instructions): Trazodone (By mouth), COPD (Chronic Obstructive Pulmonary Disease) (ED), Generalized Anxiety Disorder (ED) Additional Instructions: Please take your trazodone nightly as prescribed. Please follow-up with your primary care provider. Please continue to use supplemental oxygen as previously prescribed as needed. Smoking sensation encouraged. Please return to the Emergency Department if symptoms worsen or any other concerns. Prescriptions: traZODone HCL [Desyrel] 100 mg PO HS 7 Days #7 tab Is patient prescribed a controlled substance at d/c from ED?: No Referrals: None,Stated [REFERRING] - 1-2 days Time of Disposition: 01:02
[2022-11-16 23:32] LABS: Basophils % (A) 1 %; Eosinophils # (A) 0.1 k/uL (0-0.7); Eosinophils % (A) 1 %; HCT 43.2 % (39.0-53.0); HGB 14.7 gm/dL (13.0-17.5); Lymphocytes # (A) 0.4 k/uL (1.0-4.8); Lymphocytes % (A) 7 %; MCH 30.6 pg (25.0-35.0); MCV 89.9 fL (80.0-100.0); Mean Platelet Volume 10.1; Monocytes # (A) 0.5 k/uL (0-1.0); Monocytes % (A) 9 %; Neutrophils # (A) 4.1 k/uL (1.3-7.7); Neutrophils % (A) 79 %; Platelet Count 180 k/uL (150-450); RDW 12.8 % (11.5-15.5); WBC 5.2 k/uL (3.8-10.6)
--- NOTE | 2022-11-16 23:33 | XR ---
EXAMINATION TYPE: XR chest 2V DATE OF EXAM: 11/16/2022 COMPARISON: 09/05/2022 HISTORY: Difficulty breathing TECHNIQUE: 2 views FINDINGS: There is pulmonary hyperinflation and flattening of the diaphragm. There are no hilar leobardo s. Bony thorax is intact. The pulmonary vascularity is normal. There are chest leads. IMPRESSION: No active cardiopulmonary disease. Normal heart. No change.
[2022-11-17 00:26] LABS: ALT 17 U/L (4-49); AST 24 U/L (17-59); African American GFR (CKD) >90 (>60 ml/min/1.73 sqM); Alkaline Phosphatase 73 U/L (38-126); Anion Gap 8 mmol/L; Blood Urea Nitrogen 20 mg/dL (9-20); Calcium 8.7 mg/dL (8.4-10.2); Carbon Dioxide 25 mmol/L (22-30); Chloride 104 mmol/L (98-107); Glucose 101 mg/dL (74-99); Non-African American GFR(CKD) >90 (>60 ml/min/1.73 sqM); Potassium 3.5 mmol/L (3.5-5.1); Sodium 137 mmol/L (137-145); Total Bilirubin 0.4 mg/dL (0.2-1.3); Total Protein 6.4 g/dL (6.3-8.2)
[2022-11-17 00:30] LABS: Partial Thromboplastin Time 25.5 sec (22.0-30.0); Prothrombin Time 10.4 sec (9.0-12.0)
[2022-11-17] MEDS ORDERED: traZODone HCL 100 MG TAB PO SCH (00:45)
== END 2022-11-17 01:00 | disposition home or self-care (01) ==
LOC: EC 22:57
DX: F41.1 Generalized anxiety disorder (principal); J44.9 Chronic obstructive pulmonary disease, unspecified; F19.239 Other psychoactive substance dependence with withdrawal, unspecified; I10 Essential (primary) hypertension; F32.A Depression, unspecified; Z20.822 Contact with and (suspected) exposure to COVID-19; Z79.899 Other long term (current) drug therapy
CPT/HCPCS: 93005; 85025; 87636; 71046; 99285; 96374; 96361; J1885; 36415; 80053; 83605; 84484; 85610; 85730

== ENCOUNTER 2022-11-18 08:22 | Day surgery (SDC) | payer OTHER ==
[~2022-11-18 08:22] MED LIST: DEXAMETHASONE SOD PHOSPHATE 4 MG/ML 1 ML VIAL IV ONE; HEPARIN SODIUM,PORCINE/PF 5,000 UNIT/0.5 ML SYRINGE SQ PRN; LACTATED RINGERS 1,000 ML IV SCH; LIDOCAINE 1% (10MG/ML) FOR IV START INTRADERMA PRN; MIDAZOLAM 2 MG/2 ML VIAL IV PRN; ONDANSETRON 4 MG/2 ML VIAL IVP ONE
[2022-11-18] MEDS ORDERED: LACTATED RINGERS 1,000 ML IV ONE ×3 (09:28→13:54)
[2022-11-18 09:52] LABS: Glucose,Whole Blood 111 mg/dL (70-110)
[2022-11-18] MEDS: ACETAMINOPHEN TAB 500 MG TAB PO PRN ×2 (09:53→10:10)
--- NOTE | 2022-11-18 10:27 | P.ANPRN ---
Procedure Note - Anesthesia - Nerve Block Performed Bilateral Transversus Abdominis Single Time Out Performed: Yes Date of Procedure: 11/18/22 Procedure Start Time: 10:13 Procedure Stop Time: 10:20 Location of Patient: PreOp Indication: Acute Post-Operative Pain, Requested by Surgeon Sedation Type: Sedate with meaningful contact maintained Preparation: Sterile Prep Position: Supine Needle Types: Pajunk Needle Gauge: 21 Ultrasound used to visualize needle placement: Yes Ultrasound used to observe medication spread: Yes Injectate: 0.5% Ropivacaine (see comment for volume) (0.25% ropiv 20 ml right, 20 ml left) Blood Aspirated: No Pain Paresthesia on Injection Noted: No Resistance on Injection: Normal Image Stored and Saved: Yes Events: Uneventful and Well Tolerated
[2022-11-18] MEDS ORDERED: SUCCINYLCHOLINE CHLORIDE 200 MG/10 ML VIAL IV ONE (10:37)
[2022-11-18] MEDS ORDERED: PHENYLEPHRINE-0.9% NACL SYG 1,000 MCG/10 ML SYRINGE ONE (10:37)
[2022-11-18] MEDS ORDERED: KETAMINE 10 MG/ML 20 ML VIAL ONE (10:37)
[2022-11-18] MEDS ORDERED: ROPIVACAINE 5 MG/ML 30 ML VIAL ONE (10:37)
[2022-11-18] MEDS ORDERED: NEOSTIGMINE 1 MG/ML 10 ML VIAL ONE (10:37)
[2022-11-18] MEDS ORDERED: GLYCOPYRROLATE 0.2 MG/ML 2 ML VIAL ONE (10:37)
[2022-11-18] MEDS ORDERED: MIDAZOLAM 2 MG/2 ML VIAL ONE (10:37)
[2022-11-18] MEDS ORDERED: PROPOFOL 10 MG/ML 20 ML VIAL IV ONE (10:37)
[2022-11-18] MEDS ORDERED: fentaNYL (PF) 50 MCG/ML 2 ML AMP ONE (10:37)
[2022-11-18] MEDS ORDERED: ROCURONIUM 10 MG/ML (5 ML VIAL) IV ONE (10:37)
[2022-11-18] MEDS ORDERED: LIDOCAINE 2% INJ 20 MG/ML (2 ML VIAL) ONE (10:37)
[2022-11-18] MEDS ORDERED: BUPIVACAIN-EPI 0.25%-1:200,000 30 ML VIAL SQ ONE ×2 (10:56)
[2022-11-18 11:48] VITALS: TEMP 97.5
[2022-11-18] MEDS: HYDROmorphone 0.5 MG/0.5 ML SYRINGE IVP PRN ×3 (11:50→12:09)
[2022-11-18] MEDS ORDERED: ALBUTEROL NEBULIZED 2.5 MG/3 ML INHALATION ONE (11:54)
--- NOTE | 2022-11-18 11:55 | P.OP ---
Date of Procedure: 11/18/22 Preoperative Diagnosis: Left inguinal hernia Recurrent right inguinal hernia Postoperative Diagnosis: Same Procedure(s) Performed: Laparoscopic repair of left internal hernia Laparoscopic repair of recurrent right inguinal hernia Laparoscopic excision of left cord lipoma Transversus abdominis plane block Anesthesia: HETAL Surgeon: Jesu German Estimated Blood Loss (ml): 5 Pathology: other (Left cord lipoma) Condition: stable Disposition: PACU Description of Procedure: The patient's placed on the operating table in the supine position. The patient received general anesthesia. The patient's abdomen was prepped and draped in usual sterile fashion. The skin was anesthetized 1% local Xylocaine at the incision sites. Using an 11 blade a skin incision was made at the umbilicus. The fascia was grasped with a Sascha and then the peritoneal cavity was entered with the Veress needle. Position of the Veress needle was confirmed with a positive drop test. After adequate insufflation a 5 mm trocar was placed into the peritoneal cavity. The Laparoscope was placed the peritoneal cavity. And a robotic 8 mm trocar was placed in the right lateral position and then another 8 mm robotic trochars placed in the left lateral position. The original 5 mm trocar was exchanged for a 12 mm trocar. A four-quadrant transversus abdominis plane block was performed with 1% local Xylocaine. The patient was placed in reverse Trendelenburg and then the patient was docked to the robot. Next the peritoneum over top of the recurrent right inguinal hernia was incised and then using blunt and sharp dissection and electrocautery the hernia sac was dissected free from the floor of the inguinal canal. The hernia was located in the direct space The hernia sac was completely reduced into the peritoneal cavity. And then using the Pro power plant assistant mesh the hernia was repaired. The peritoneum was then sutured with 20V lock suture. Next the peritoneum over top of the left inguinal hernia was incised and then using blunt and sharp dissection and electrocautery the hernia sac was dissected free from the floor of the inguinal canal. The cord lipoma was dissected free to pathology. The hernia sac was completely reduced into the peritoneal cavity. And then using the Pro power plant assistant mesh the hernia was repaired. The peritoneum was then sutured with 20V lock suture. The patient was then undocked the robot. The needle was withdrawn from the peritoneal cavity. The umbilical trocar site was closed with 0 Ethibond suture. The skin was closed interrupted 3-0 Monocryl suture. Dermabond dressing was applied. Patient was sent to recovery in stable condition.
[2022-11-18 13:52] VITALS: RESP 18
[2022-11-18 14:31] VITALS: BP 121/60; PULSE 81
== END 2022-11-18 14:34 | disposition home or self-care (01) ==
LOC: OR 08:22
PROVIDERS: ATTEND Surgery
DX: K40.20 Bilateral inguinal hernia, without obstruction or gangrene, not specified as recurrent (principal); G89.18 Other acute postprocedural pain; I10 Essential (primary) hypertension; E78.5 Hyperlipidemia, unspecified; F31.9 Bipolar disorder, unspecified; F20.9 Schizophrenia, unspecified; F41.9 Anxiety disorder, unspecified; E66.9 Obesity, unspecified; J44.9 Chronic obstructive pulmonary disease, unspecified; Z68.27 Body mass index [BMI] 27.0-27.9, adult; Z79.899 Other long term (current) drug therapy
CPT/HCPCS: 64488; 86900; 86901; 86850; 49651; C1781 ×2; J2250; J0330; J1100; J2710; J0690; J2405; J3010; J2795; J2370; J2704; J1170; J1644; J2001; 88304

== ENCOUNTER 2024-07-28 19:16 | Inpatient (IN) | payer BC, MEDICAID, OTHER ==
--- NOTE | 2024-07-28 19:57 | ED ---
Psych HPI - General Chief Complaint: Psychiatric Symptoms Stated Complaint: petition Time Seen by Provider: 07/28/24 19:33 Source: police, RN notes reviewed, old records reviewed Mode of arrival: ambulatory Limitations: altered mental status - History of Present Illness Initial Comments: This is a 59-year-old male presenting with acute alcohol intoxication and a presentation for psychiatric evaluation under petition MD Complaint: suicidal ideation, feels depressed, altered mental status, other (Fall intoxication) Associated Psychiatric Symptoms: depression, suicidal ideation History of same: Yes Quality: constant Improves With: none Worsens With: none Context: recent alcohol abuse Associated Symptoms: denies other symptoms Treatments Prior to Arrival: placed on mental health hold If Self Harm: admits thoughts of self harm - Related Data Home Medications Medication Instructions Recorded Confirmed Losartan Potassium 50 mg PO HS 11/13/22 07/28/24 Albuterol Inhaler [Ventolin Hfa 1 - 2 puff INHALATION RT-Q6H PRN 12/16/22 07/28/24 Inhaler] Budesonide-Formot 160-4.5 Mcg 2 puff INHALATION RT-BID 12/16/22 07/28/24 [Symbicort 160-4.5 Mcg Inhaler] tadalafiL 10 mg PO DAILY PRN 07/28/24 07/28/24 Previous Rx's Medication Instructions Recorded Escitalopram [Lexapro] 10 mg PO DAILY 30 Days #30 tab 08/03/24 Folic Acid 1 mg PO DAILY 30 Days #30 tab 08/03/24 Multivitamins, Thera [Multivitamin 1 each PO DAILY 30 Days #30 tab 08/03/24 (formulary)] Nicotine 14Mg/24Hr Patch [Habitrol] 1 patch TRANSDERM DAILY 14 Days 08/03/24 #14 patch Nicotine Gum (Polacrilex) 2 mg BUCCAL Q4HR PRN 30 Days #180 08/03/24 [Nicorette] pieceofgum Thiamine [Vitamin B-1] 100 mg PO DAILY 30 Days #30 tab 08/03/24 traZODone HCL 150 mg PO HS 30 Days #30 tablet 08/03/24 Allergies Allergy/AdvReac Type Severity Reaction Status Date / Time No Known Allergies Allergy Verified 07/28/24 20:16 Review of Systems ROS Statement: Those systems with pertinent positive or pertinent negative responses have been documented in the HPI. ROS Other: All systems not noted in ROS Statement are negative. Past Medical History Past Medical History: COPD, Hypertension Additional Past Medical History / Comment(s): astigmatism History of Any Multi-Drug Resistant Organisms: None Reported Past Surgical History: Hernia Repair Additional Past Surgical History / Comment(s): APRIL 2015 RIGHT ING. HERNIA REPAIR. lt cubital tunnel release-2013 Past Anesthesia/Blood Transfusion Reactions: No Reported Reaction Additional Past Anesthesia/Blood Transfusion Reaction / Comment(s): FAMILY HX UNK. PT ADOPTED Past Psychological History: Anxiety, Depression Smoking Status: Current every day smoker Past Alcohol Use History: Daily Past Drug Use History: Marijuana - Past Family History Mother History Unknown: Yes Additional Family Medical History / Comment(s): PT ADOPTED. General Exam Limitations: no limitations General appearance: alert, in no apparent distress Head exam: Present: atraumatic, normocephalic, normal inspection Eye exam: Present: normal appearance, PERRL, EOMI. Absent: scleral icterus, conjunctival injection, periorbital swelling ENT exam: Present: normal exam, mucous membranes moist Neck exam: Present: normal inspection. Absent: tenderness, meningismus, lymphadenopathy Respiratory exam: Present: normal lung sounds bilaterally. Absent: respiratory distress, wheezes, rales, rhonchi, stridor Cardiovascular Exam: Present: regular rate, normal rhythm, normal heart sounds. Absent: systolic murmur, diastolic murmur, rubs, gallop, clicks GI/Abdominal exam: Present: soft, normal bowel sounds. Absent: distended, tenderness, guarding, rebound, rigid Extremities exam: Present: normal inspection, full ROM, normal capillary refill. Absent: tenderness, pedal edema, joint swelling, calf tenderness Back exam: Present: normal inspection Neurological exam: Present: alert, oriented X3, CN II-XII intact Psychiatric exam: Present: normal affect, normal mood Skin exam: Present: warm, dry, intact, normal color. Absent: rash Course Vital Signs 07/28/24 07/29/24 07/29/24 19:24 00:12 00:18 Temperature 97.8 F Pulse Rate 141 H 98 100 Respiratory 20 Rate Blood Pressure 89/58 O2 Sat by Pulse 96 Oximetry 07/29/24 07/29/24 07:36 14:00 Temperature 98 F Pulse Rate 88 79 Respiratory 16 16 Rate Blood Pressure 170/93 163/86 O2 Sat by Pulse 98 97 Oximetry - Reevaluation(s) Reevaluation #1: 07/28/24 21:22 Medical records reviewed Reevaluation #2: 07/28/24 21:22 Patient symptoms unchanged Reevaluation #5: Differential Mental Health Depression, anxiety, bipolar, psychosis, schizophrenia, borderline personality, situational depression, adjustment disorder, behavioral disorder, brain tumor, malingering, substance abuse, encephalopathy, medication reaction, dementia, hypothyroidism, degenerative neurologic disorder, lupus.... This is not meant to be all-inclusive list Medical Decision Making - Medical Decision Making 59 male will be admitted to [facility] and transferred to inpatient psychiatric evaluation and treatment - Lab Data Result diagrams: 07/28/24 22:05 07/30/24 08:07 Lab Results 07/28/24 07/28/24 07/28/24 Range/Units 02:56 22:05 22:05 WBC 4.8 (3.8-10.6) k/uL RBC 4.37 (4.30-5.90) m/uL Hgb 14.3 (13.0-17.5) gm/dL Hct 43.4 (39.0-53.0) % MCV 99.4 (80.0-100.0) fL MCH 32.8 (25.0-35.0) pg MCHC 33.0 (31.0-37.0) g/dL RDW 11.9 (11.5-15.5) % Plt Count 313 (150-450) k/uL MPV 7.2 Neutrophils % 59 % Lymphocytes % 23 % Monocytes % 13 % Eosinophils % 2 % Basophils % 0 % Neutrophils # 2.8 (1.3-7.7) k/uL Lymphocytes # 1.1 (1.0-4.8) k/uL Monocytes # 0.6 (0-1.0) k/uL Eosinophils # 0.1 (0-0.7) k/uL Basophils # 0.0 (0-0.2) k/uL Sodium 144 (137-145) mmol/L Potassium 3.8 (3.5-5.1) mmol/L Chloride 104 (98-107) mmol/L Carbon Dioxide 32 H (22-30) mmol/L Anion Gap 8 mmol/L BUN 24 H (9-20) mg/dL Creatinine 0.92 (0.66-1.25) mg/dL Est GFR (CKD-EPI)AfAm >90 (>60 ml/min/1.73 sqM) Est GFR (CKD-EPI)NonAf >90 (>60 ml/min/1.73 sqM) Glucose 90 (74-99) mg/dL Estimated Ave Glu mg/dL 128 mg/dL Hemoglobin A1c 6.1 H (<=6.0) % Calcium 9.8 (8.4-10.2) mg/dL Phosphorus 3.4 (2.5-4.5) mg/dL Magnesium 1.7 (1.6-2.3) mg/dL Total Bilirubin 0.2 (0.2-1.3) mg/dL AST 26 (17-59) U/L ALT 20 (4-49) U/L Alkaline Phosphatase 71 (38-126) U/L Total Protein 7.0 (6.3-8.2) g/dL Albumin 4.3 (3.5-5.0) g/dL Lipase 204 (23-300) U/L Urine Color Urine Appearance (Clear) Urine pH (5.0-8.0) Ur Specific [place] (1.001-1.035) Urine Protein (Negative) Urine Glucose (UA) (Negative) Urine Ketones (Negative) Urine Blood (Negative) Urine Nitrite (Negative) Urine Bilirubin (Negative) Urine Urobilinogen (<2.0) mg/dL Ur Leukocyte Esterase (Negative) Urine RBC (0-5) /hpf Urine WBC (0-5) /hpf Ur Squamous Epith Cells (0-4) /hpf Hyaline Casts (0-2) /lpf Urine Mucus (None) /hpf Urine Opiates Screen (NotDetected) Ur Oxycodone Screen (NotDetected) Urine Methadone Screen (NotDetected) Ur Barbiturates Screen (NotDetected) U Tricyclic Antidepress (NotDetected) Ur Phencyclidine Scrn (NotDetected) Ur Amphetamines Screen (NotDetected) U Methamphetamines Scrn (NotDetected) U Benzodiazepines Scrn (NotDetected) Urine Cocaine Screen (NotDetected) U Marijuana (THC) Screen (NotDetected) Serum Alcohol mg/dL SARS-CoV-2 (PCR) (Not Detectd) 07/29/24 07/29/2407/29/24 Range/Units 03:13 03:23 06:30 WBC (3.8-10.6) k/uL RBC (4.30-5.90) m/uL Hgb (13.0-17.5) gm/dL Hct (39.0-53.0) % MCV (80.0-100.0) fL MCH (25.0-35.0) pg MCHC (31.0-37.0) g/dL RDW (11.5-15.5) % Plt Count (150-450) k/uL MPV Neutrophils % % Lymphocytes % % Monocytes % % Eosinophils % % Basophils % % Neutrophils # (1.3-7.7) k/uL Lymphocytes # (1.0-4.8) k/uL Monocytes # (0-1.0) k/uL Eosinophils # (0-0.7) k/uL Basophils # (0-0.2) k/uL Sodium (137-145) mmol/L Potassium (3.5-5.1) mmol/L Chloride (98-107) mmol/L Carbon Dioxide (22-30) mmol/L Anion Gap mmol/L BUN (9-20) mg/dL Creatinine (0.66-1.25) mg/dL Est GFR (CKD-EPI)AfAm (>60 ml/min/1.73 sqM) Est GFR (CKD-EPI)NonAf (>60 ml/min/1.73 sqM) Glucose (74-99) mg/dL Estimated Ave Glu mg/dL mg/dL Hemoglobin A1c (<=6.0) % Calcium (8.4-10.2) mg/dL Phosphorus (2.5-4.5) mg/dL Magnesium (1.6-2.3) mg/dL Total Bilirubin (0.2-1.3) mg/dL AST (17-59) U/L ALT (4-49) U/L Alkaline Phosphatase (38-126) U/L Total Protein (6.3-8.2) g/dL Albumin (3.5-5.0) g/dL Lipase (23-300) U/L Urine Color Light Yellow Urine Appearance Clear (Clear) Urine pH 5.5 (5.0-8.0) Ur Specific [place] 1.023 (1.001-1.035) Urine Protein Trace H (Negative) Urine Glucose (UA) Negative (Negative) Urine Ketones Negative (Negative) Urine Blood Trace H (Negative) Urine Nitrite Negative (Negative) Urine Bilirubin Negative (Negative) Urine Urobilinogen <2.0 (<2.0) mg/dL Ur Leukocyte Esterase Negative (Negative) Urine RBC 5 (0-5) /hpf Urine WBC 1 (0-5) /hpf Ur Squamous Epith Cells <1 (0-4) /hpf Hyaline Casts 10 H (0-2) /lpf Urine Mucus Occasional H (None) /hpf Urine Opiates Screen Not Detected (NotDetected) Ur Oxycodone Screen Not Detected (NotDetected) Urine Methadone Screen Not Detected (NotDetected) Ur Barbiturates Screen Not Detected (NotDetected) U Tricyclic Antidepress Not Detected (NotDetected) Ur Phencyclidine Scrn Not Detected (NotDetected) Ur Amphetamines Screen Not Detected (NotDetected) U Methamphetamines Scrn Not Detected (NotDetected) U Benzodiazepines Scrn Detected H (NotDetected) Urine Cocaine Screen Not Detected (NotDetected) U Marijuana (THC) Screen Detected H (NotDetected) Serum Alcohol <10 mg/dL SARS-CoV-2 (PCR) Not Detected (Not Detectd) Disposition Clinical Impression: Cannabis use disorder, Alcohol use disorder, Substance induced mood disorder, Alcoholism, Marijuana use, Depression, unspecified, Suicidal ideation, Acute anxiety Disposition: TRANSFER TO PSYCH HOSP/UNIT Condition: Fair Is patient prescribed a controlled substance at d/c from ED?: No
[2024-07-28] MEDS ORDERED: LORazepam 0.5 MG TAB PO PRN (21:20)
[2024-07-28] MEDS ORDERED: LORazepam 1 MG TAB PO PRN ×3 (21:20)
[2024-07-28] MEDS ORDERED: LORazepam 2 MG/ML INJ IV PRN ×2 (21:20)
[2024-07-28] MEDS: LORazepam 2 MG/ML INJ IV STA (22:08)
[2024-07-28] MEDS: SODIUM CHLORIDE 0.9% 1,000 ML IV STA (22:08)
[2024-07-28 22:15] LABS: Basophils % (A) 0 %; Eosinophils # (A) 0.1 k/uL (0-0.7); Eosinophils % (A) 2 %; HCT 43.4 % (39.0-53.0); HGB 14.3 gm/dL (13.0-17.5); Lymphocytes # (A) 1.1 k/uL (1.0-4.8); Lymphocytes % (A) 23 %; MCH 32.8 pg (25.0-35.0); MCV 99.4 fL (80.0-100.0); Mean Platelet Volume 7.2; Monocytes # (A) 0.6 k/uL (0-1.0); Monocytes % (A) 13 %; Neutrophils # (A) 2.8 k/uL (1.3-7.7); Neutrophils % (A) 59 %; Platelet Count 313 k/uL (150-450); RBC 4.37 m/uL (4.30-5.90); RDW 11.9 % (11.5-15.5); WBC 4.8 k/uL (3.8-10.6)
[2024-07-28 22:28] LABS: ALT 20 U/L (4-49); AST 26 U/L (17-59); African American GFR (CKD) >90 (>60 ml/min/1.73 sqM); Albumin 4.3 g/dL (3.5-5.0); Alkaline Phosphatase 71 U/L (38-126); Anion Gap 8 mmol/L; Blood Urea Nitrogen 24 mg/dL (9-20); Calcium 9.8 mg/dL (8.4-10.2); Carbon Dioxide 32 mmol/L (22-30); Chloride 104 mmol/L (98-107); Glucose 90 mg/dL (74-99); Lipase 204 U/L (23-300); Magnesium 1.7 mg/dL (1.6-2.3); Non-African American GFR(CKD) >90 (>60 ml/min/1.73 sqM); Phosphorus 3.4 mg/dL (2.5-4.5); Potassium 3.8 mmol/L (3.5-5.1); Sodium 144 mmol/L (137-145); Total Bilirubin 0.2 mg/dL (0.2-1.3)
[2024-07-29] MEDS: IPRATROPIUM-ALBUTEROL 3 ML NEB INHALATION STA (00:10)
[2024-07-29] MEDS: LORazepam 2 MG/ML INJ IV PRN (06:24)
[2024-07-29 07:10] LABS: Appearance,Urine Clear (Clear); Bilirubin,Urine Negative (Negative); Blood,Urine Trace (Negative); Color,Urine Light Yellow; Glucose,Urine (UA) Negative (Negative); Hyaline Casts,Urine 10 /lpf (0-2); Ketones,Urine Negative (Negative); Leukocyte Esterase,Urine Negative (Negative); Mucus,Urine Occasional /hpf; Nitrite,Urine Negative (Negative); PH, Urine 5.5 (5.0-8.0); Protein,Urine Trace (Negative); RBC,Urine 5 /hpf (0-5); Specific Gravity,Urine 1.023 (1.001-1.035); Squamous Epithelial Cell,Urine <1 /hpf (0-4); Urobilinogen,Urine <2.0 mg/dL (<2.0); WBC,Urine 1 /hpf (0-5)
[2024-07-29 07:14] LABS: Amphetamine Screen,Urine Not Detected (NotDetected); Barbiturate Screen,Urine Not Detected (NotDetected); Benzodiazepines Screen,Urine Detected (NotDetected); Cocaine Screen,Urine Not Detected (NotDetected); Methadone Screen, Urine Not Detected (NotDetected); Opiate Screen,Urine Not Detected (NotDetected); Oxycodone Screen, Urine Not Detected (NotDetected); Phencyclidine Screen,Urine Not Detected (NotDetected); Tricyclic Antidepressant,Urine Not Detected (NotDetected); Urn Cannabinoid Scrn Detected (NotDetected)
[2024-07-29] MEDS ORDERED: ALBUTEROL NEBULIZED 2.5 MG/3 ML INHALATION PRN (18:20)
[2024-07-29] MEDS ORDERED: MAG HYDROX/AL HYDROX/SIMETH 355 ML BOTTLE PO PRN (18:26)
[2024-07-29] MEDS ORDERED: ACETAMINOPHEN TAB 325 MG TAB PO PRN (18:26)
[2024-07-29] MEDS ORDERED: MAGNESIUM HYDROXIDE 2,400 MG/30 ML CUP PO PRN (18:26)
[2024-07-29] MEDS ORDERED: ALBUTEROL INHALER 60 PUFF/8 GM INHALER (MHU) INHALATION PRN (18:29)
[2024-07-29] MEDS ORDERED: LORazepam 2 MG/ML INJ IM PRN (18:35)
[2024-07-29] MEDS ORDERED: haloperidoL 5 MG TAB PO PRN ×2 (18:37→18:43)
[2024-07-29] MEDS ORDERED: HALOPERIDOL LACTATE 5 MG/ML 1 ML VIAL IM PRN (18:37)
[2024-07-29] MEDS ORDERED: SYMBICORT 160-4.5 MCG INHALER INHALATION SCH (20:00)
[2024-07-29] MEDS: LOSARTAN 50 MG TAB PO SCH (20:27)
[2024-07-29] MEDS: chlordiazePOXIDE 25 MG CAP PO SCH (20:27)
[2024-07-29] MEDS: SYMBICORT 160-4.5 MCG INHALER (MHU) INHALATION SCH (20:27)
[2024-07-29] MEDS: traZODone HCL 100 MG TAB PO SCH (20:27)
[2024-07-30] MEDS: NICOTINE 14MG/24HR PATCH TRANSDERM SCH (01:24)
--- NOTE | 2024-07-30 15:41 | P.CONS ---
History of Present Illness - Reason for Consult Consult date: 07/30/24 - Chief Complaint Suicidal ideation - History of Present Illness 59-year-old male, history of hypertension, COPD/asthma, sleep disorder, depression, presenting with acute alcohol intoxication and a presentation for psychiatric evaluation under petition Patient is a poor historian so most of the history is obtained from the chart; patient reports feeling depressed and reports suicidal ideation -Patient does have history of alcohol abuse Review of Systems REVIEW OF SYSTEMS: CONSTITUTIONAL: No fever, no malaise, no fatigue. HEENT: No recent visual problems or hearing problems. Denied any sore throat. CARDIOVASCULAR: No chest pain, orthopnea, PND, no palpitations, no syncope. PULMONARY: No shortness of breath, no cough, no hemoptysis. GASTROINTESTINAL: No diarrhea, no nausea, no vomiting, no abdominal pain. NEUROLOGICAL: No headaches, no weakness, no numbness. HEMATOLOGICAL: Denies any bleeding or petechiae. GENITOURINARY: Denies any burning micturition, frequency, or urgency. MUSCULOSKELETAL/RHEUMATOLOGICAL: Denies any joint pain, swelling, or any muscle pain. ENDOCRINE: Denies any polyuria or polydipsia. The rest of the 14-point review of systems is negative. Past Medical History Past Medical History: COPD, Hypertension Additional Past Medical History / Comment(s): astigmatism History of Any Multi-Drug Resistant Organisms: None Reported Past Surgical History: Hernia Repair Additional Past Surgical History / Comment(s): APRIL 2015 RIGHT ING. HERNIA REPAIR. lt cubital tunnel release-2013 Past Anesthesia/Blood Transfusion Reactions: No Reported Reaction Additional Past Anesthesia/Blood Transfusion Reaction / Comm: FAMILY HX UNK. PT ADOPTED Smoking Status: Current every day smoker - Past Family History Mother History Unknown: Yes Additional Family Medical History / Comment(s): PT ADOPTED. Medications and Allergies Home Medications Medication Instructions Recorded Confirmed Type Losartan Potassium 50 mg PO HS 11/13/22 07/28/24 History traZODone HCL 100 mg PO HS 11/13/22 07/28/24 History Albuterol Inhaler [Ventolin Hfa 1 - 2 puff INHALATION RT-Q6H PRN 12/16/22 07/28/24 History Inhaler] Budesonide-Formot 160-4.5 Mcg 2 puff INHALATION RT-BID 12/16/22 07/28/24 History [Symbicort 160-4.5 Mcg Inhaler] tadalafiL 10 mg PO DAILY PRN 07/28/24 07/28/24 History Allergies Allergy/AdvReac Type Severity Reaction Status Date / Time No Known Allergies Allergy Verified 07/28/24 20:16 Physical Exam Vitals: Vital Signs Temp Pulse Pulse Resp BP BP Pulse Ox 07/30/24 06:40 97.1 F L 77 18 142/87 97 07/29/24 19:29 120 H 07/29/24 19:24 98.4 F 20 165/88 95 07/29/24 18:30 75 20 98 07/29/24 14:00 79 16 163/86 97 General appearance: alert, in no apparent distress Head exam: Present: atraumatic, normocephalic, normal inspection Eye exam: Present: normal appearance, PERRL, EOMI. Absent: scleral icterus, conjunctival injection, periorbital swelling ENT exam: Present: normal exam, mucous membranes moist Neck exam: Present: normal inspection. Absent: tenderness, meningismus, lymphadenopathy Respiratory exam: Present: normal lung sounds bilaterally. Absent: respiratory distress, wheezes, rales, rhonchi, stridor Cardiovascular Exam: Present: regular rate, normal rhythm, normal heart sounds. Absent: systolic murmur, diastolic murmur, rubs, gallop, clicks GI/Abdominal exam: Present: soft, normal bowel sounds. Absent: distended, t enderness, guarding, rebound, rigid Extremities exam: Present: normal inspection, full ROM, normal capillary refill. Absent: tenderness, pedal edema, joint swelling, calf tenderness Back exam: Present: normal inspection Neurological exam: Present: alert, oriented X3, CN II-XII intact Psychiatric exam: Present: normal affect, normal mood Skin exam: Present: warm, dry, intact, normal color. Absent: rash Results CBC & Chem 7: 07/28/24 22:05 07/30/24 08:07 Assessment and Plan Assessment: 1. Depression/suicide ideation; your management 2. COPD/asthma; not in exacerbation; continue with home inhaler therapy 3. Hypertension; patient takes losartan 50 mg p.o. nightly 4. Insomnia/sleep disorder; new with home dose of trazodone 5. Mild TESS; BUN slightly elevated at 24; patient encouraged to increase fluid intake 6. Substance abuse; urine drug screen is positive for benzodiazepines and marijuana; blood alcohol level of less than 10 -- Counseling done -Patient is currently on IM Haldol for symptomatic treatment
--- NOTE | 2024-07-30 16:43 | P.HP ---
Psychiatric H&P - . History & Physical: Allergies Allergy/AdvReac Type Severity Reaction Status Date / Time No Known Allergies Allergy Verified 07/28/24 20:16 Vital Signs Temp 97.1 F L 07/30/24 06:40 Pulse 77 07/30/24 06:40 Resp 18 07/30/24 06:40 BP 142/87 07/30/24 06:40 Pulse Ox 97 07/30/24 06:40 FiO2 Laboratory Last Values WBC 4.8 k/uL (3.8-10.6) 07/28/24 22:05 RBC 4.37 m/uL (4.30-5.90) 07/28/24 22:05 Hgb 14.3 gm/dL (13.0-17.5) 07/28/24 22:05 Hct 43.4 % (39.0-53.0) 07/28/24 22:05 MCV 99.4 fL (80.0-100.0) 07/28/24 22:05 MCH 32.8 pg (25.0-35.0) 07/28/24 22:05 MCHC 33.0 g/dL (31.0-37.0) 07/28/24 22:05 RDW 11.9 % (11.5-15.5) 07/28/24 22:05 Plt Count 313 k/uL (150-450) 07/28/24 22:05 MPV 7.2 07/28/24 22:05 Neutrophils % 59 % 07/28/24 22:05 Lymphocytes % 23 % 07/28/24 22:05 Monocytes % 13 % 07/28/24 22:05 Eosinophils % 2 % 07/28/24 22:05 Basophils % 0 % 07/28/24 22:05 Neutrophils # 2.8 k/uL (1.3-7.7) 07/28/24 22:05 Lymphocytes # 1.1 k/uL (1.0-4.8) 07/28/24 22:05 Monocytes # 0.6 k/uL (0-1.0) 07/28/24 22:05 Eosinophils # 0.1 k/uL (0-0.7) 07/28/24 22:05 Basophils # 0.0 k/uL (0-0.2) 07/28/24 22:05 Sodium 144 mmol/L (137-145) 07/28/24 22:05 Potassium 3.8 mmol/L (3.5-5.1) 07/28/24 22:05 Chloride 104 mmol/L (98-107) 07/28/24 22:05 Carbon Dioxide 32 mmol/L (22-30) H 07/28/24 22:05 Anion Gap 8 mmol/L 07/28/24 22:05 BUN 16 mg/dL (9-20) 07/30/24 08:07 Creatinine 0.92 mg/dL (0.66-1.25) 07/28/24 22:05 Est GFR (CKD-EPI)AfAm >90 (>60 ml/min/1.73 sqM) 07/28/24 22:05 Est GFR (CKD-EPI)NonAf >90 (>60 ml/min/1.73 sqM) 07/28/24 22:05 Glucose 90 mg/dL (74-99) 07/28/24 22:[address] Glu mg/dL 128 mg/dL 07/28/24 02:56 Hemoglobin A1c 6.1 % (<=6.0) H 07/28/24 02:56 Calcium 9.8 mg/dL (8.4-10.2) 07/28/24 22:05 Phosphorus 3.4 mg/dL (2.5-4.5) 07/28/24 22:05 Magnesium 1.7 mg/dL (1.6-2.3) 07/28/24 22:05 Total Bilirubin 0.2 mg/dL (0.2-1.3) 07/28/24 22:05 AST 26 U/L (17-59) 07/28/24 22:05 ALT 20 U/L (4-49) 07/28/24 22:05 Alkaline Phosphatase 71 U/L (38-126) 07/28/24 22:05 Total Protein 7.0 g/dL (6.3-8.2) 07/28/24 22:05 Albumin 4.3 g/dL (3.5-5.0) 07/28/24 22:05 Lipase 204 U/L (23-300) 07/28/24 22:05 TSH 1.870 mIU/L (0.465-4.680) 07/30/24 08:07 Urine Color Light Yellow 07/29/24 03:13 Urine Appearance Clear (Clear) 07/29/24 03:13 Urine pH 5.5 (5.0-8.0) 07/29/24 03:13 Ur Specific [place] 1.023 (1.001-1.035) 07/29/24 03:13 Urine Protein Trace (Negative) H 07/29/24 03:13 Urine Glucose (UA) Negative (Negative) 07/29/24 03:13 Urine Ketones Negative (Negative) 07/29/24 03:13 Urine Blood Trace (Negative) H 07/29/24 03:13 Urine Nitrite Negative (Negative) 07/29/24 03:13 Urine Bilirubin Negative (Negative) 07/29/24 03:13 Urine Urobilinogen <2.0 mg/dL (<2.0) 07/29/24 03:13 Ur Leukocyte Esterase Negative (Negative) 07/29/24 03:13 Urine RBC 5 /hpf (0-5) 07/29/24 03:13 Urine WBC 1 /hpf (0-5) 07/29/24 03:13 Ur Squamous Epith Cells <1 /hpf (0-4) 07/29/24 03:13 Hyaline Casts 10 /lpf (0-2) H 07/29/24 03:13 Urine Mucus Occasional /hpf (None) H 07/29/24 03:13 Urine Opiates Screen Not Detected (NotDetected) 07/29/24 03:13 Ur Oxycodone Screen Not Detected (NotDetected) 07/29/24 03:13 Urine Methadone Screen Not Detected (NotDetected) 07/29/24 03:13 Ur Barbiturates Screen Not Detected (NotDetected) 07/29/24 03:13 U Tricyclic Antidepress Not Detected (NotDetected) 07/29/24 03:13 Ur Phencyclidine Scrn Not Detected (NotDetected) 07/29/24 03:13 Ur Amphetamines Screen Not Detected (NotDetected) 07/29/24 03:13 U Methamphetamines Scrn Not Detected (NotDetected) 07/29/24 03:13 U Benzodiazepines Scrn Detected (NotDetected) H 07/29/24 03:13 Urine Cocaine Screen Not Detected (NotDetected) 09/27/24 03:13 U Marijuana (THC) Screen Detected (NotDetected) H 07/29/24 03:13 Serum Alcohol <10 mg/dL 07/29/24 06:30 SARS-CoV-2 (PCR) Not Detected (Not Detectd) 07/29/24 03:23 07/30/24 16:25 IDENTIFYING DATA: Patient is a 59-year-old unemployed homeless male for suicidal ideations and alcohol use HPI: patient states that he has been sober for 7 years. Recently he met a woman who he was going to helpget over her addiction. He ended up relapsing, which eventually led to him losing his job. He called the crisis number, and the police eventually came and brought him to the hospital. When asked about suicidal ideations, he responds "I just don't care" reports mild withdrawal symptoms including poor sleep. Last drink was on . He will usually drinks 3-4 days into her oh. He will drink about a fifth a day. Him and his girlfriend will then go through withdrawals together, and then started drinking again a few days later. His last drink was on . He also reports marijuana use. States that he takes a hit a few times a day for pain. Denies any other substance use. Patient denies any homicidal ideations intent or plan. no current or past history of lorenzo or psychosis. Denies significant depression when sober PAST PSYCHIATRIC HISTORY: -States that he has been diagnosed with depression in the past -Admitted to [facility] in 2005 for suicide attempt and [facility] in 2014 for alcohol use and depression, was discharged on abilify 5 mg daily, lexapro 10 mg daily, seroquel 600 mg qhs, and hydroxyzine -Not on any psychiatric medications currently PMH: COPD ALLERGIES: as per EMR CHEMICAL DEPENDENCY HISTORY: as per HPI FAMILY PSYCHIATRIC/SUBSTANCE USE HISTORY: patient is adopted so he does not know SOCIAL HISTORY: patient is adopted.he was living with his girlfriend, but girlfriend told him not to come back home. He also lost his job at [employer] recently MENTAL STATUS EXAM: General Appearance: Patient appears to be older than stated age is alert, [directable, and attempts to cooperate]. Behavior: Patient is seated without any agitated behavior. [] Speech: Patient's speech is [fluent and nonpressured.] Mood/Affect: Patient reports their mood is [depressed], affect is congruent and constricted. tearful Suicidality/Homicidality: Patient denies having any homicidal ideation intent or plan. [Denies any suicidal ideations intent or plan] Perceptions: Patient denies any visual hallucinations [and denies any auditory hallucinations] Though content/process: [There is no evidence of any delusional thought content and thought process is linear and goal-directed.] Memory and concentration: AOX3, grossly intact for the purposes of this session. Can spell "WORLD" backwards Judgment and insight: [poor] STRENGTHS/WEAKNESSES: strength is that patient has had [long periods of sobriety]. Weakness is that patient [has poor support INTELLECT: [average] IMPRESSIONS: Depression unspecified, Alcohol use disorder ; Substance induced mood disorder PLAN: -Patient has [not] signed [adult voluntary form. [A second certification was com pleted and along with petition will be filed for court.] -Medications : Will start patient on librium detox protocol -Ativan [and Haldol] PRN for agitation/aggression [-Started thiamine, MVM for etoh use] [-CIWA protocol with Ativan PRN for ETOH withdrawal] [-Patient was counselled on substance abuse and desired to cut back on use] -Patient was informed of the risks, benefits and side effects of the medication and patient verbally consented to taking the medications. -Internal Medicine consult to perform medical evaluation and physical. -NRT - nicotine patch and gum -SW on board for discharge planning. Encourage patient to participate in groups to work on coping skills. [Will await deferral and court date.] [] 07/30/24 16:28 07/30/24 16:34 07/30/24 16:42
[2024-07-30] MEDS: LORazepam 1 MG TAB PO PRN (20:40)
[2024-07-30] MEDS: chlordiazePOXIDE 25 MG CAP PO SCH (20:40)
[2024-07-30] MEDS: NICOTINE GUM (POLACRILEX) 2 MG GUM BUCCAL PRN (20:47)
[2024-07-31] MEDS: THIAMINE 100 MG TAB PO SCH (08:20)
[2024-07-31] MEDS: MULTIVITAMINS, THERA 1 EACH TAB PO SCH (08:20)
[2024-07-31] MEDS: FOLIC ACID 1 MG TAB PO SCH (08:20)
--- NOTE | 2024-07-31 23:08 | P.PN ---
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 denies w/d sx. States that he has been crying a lot and his mood has been "up and down." Wants d/c At this time patient denies any suicidal or homicidal ideations intent or plan. Denies any Auditory or visual halluc inations. Patient denies any side effects from the medications and has been compliant with meds. Mental status exam: General Appearance: [Patient appears to be stated age is alert, directable, and cooperative.] walking the hallway wrapped in a blanket Behavior: [No agitated behavior. Patient is calm and directable] Speech: Patient's speech is fluent and nonpressured. Mood/Affect: Mood is "up and down:", affect is congruent and constricted. Suicidality/Homicidality: Patient denies having any suicidal or homicidal ideation intent or plan. Perceptions: Patient denies any auditory or visual hallucinations. Though content/process: [There is no evidence of any delusional thought content and thought process is linear and goal-directed.] Memory and concentration: AOX3, grossly intact for the purposes of this session Judgment and insight: poor Assessment/Plan: Continue with current diagnosis. Patient continues to meet criteria for inpatient psychiatric admission for symptom stabilization and safety Librium tapered. Monitor for medication compliance and for any psychotropic medication side effects. Will continue to monitor ongoing response to treatment. Encouraged participation in milieu.
[2024-08-01] MEDS: chlordiazePOXIDE 25 MG CAP PO SCH (08:36)
[2024-08-01] MEDS: INFLUENZA VACC (6 MOS-64 YRS) 45 MCG/0.5 ML SYRINGE IM ONE (11:13)
--- NOTE | 2024-08-01 12:06 | P.PN ---
Progress Note - Text Progress Note Date: 08/01/24 Interval History: Patient was seen in group, and was directable and agreeable to speak with grant writer in the office. He states he was drinking, and said something stupid. He told his friend that he was going to wrap his car around a tree. He states he regrets saying that, and that he did not mean it, he was drunk. He states that he has been bingeing on alcohol recently, with his friend. He states he lost his job, due to drinking. He is minimizing his alcohol use. Lead Blender mentioned rehab to the patient, the patient states that he feels he does not need rehab. Lead Blender also offered patient anticraving medicaion, patient refused. He denies any withdraw symptoms. He does endorse some anxiety. Patient states he has a problem sleeping, and claims to only get 2 hours or so a night. States his appetite is good. At this time patient denies any suicidal or homicidal ideations, intent or plan. Patient denies any auditory, visual hallucinations and denies any paranoia or delusions. Patient denies any side effects from the medications and has been compliant with meds. Mental Status Exam: General Appearance: Patient appears to be older than stated age is alert, directable, and cooperative. Tall, thin build. Hale hair, glasses. Casually dressed. Behavior: Patient is calmly seated without any agitated behavior. Fair eye contact. Speech: Patient's speech is fluent and nonpressured. Mood/Affect: Mood is improving mildly, affect is congruent and constricted. Suicidality/Homicidality: Patient denies having any suicidal or homicidal ideation intent or plan. Perceptions: Patient denies any visual hallucinations and denies any auditory hallucinations Though content/process: There is no evidence of any delusional thought content and thought process is linear. Minimizing alcohol use and addiction. Memory and concentration: AOX3, grossly intact for the purposes of this session Judgment and insight: Improving mildly Assessment Depression unspecified Alcohol use disorder Substance induced mood disorder Plan: -Patient continues to meet criteria for inpatient psychiatric admission for symptom stabilization and safety. Patient has not signed adult voluntary form and medication consent and was placed in patient's chart. -Medications: Decrease librium 10mg PO BID for withdraw. add Lexapro 5mg PO today, for depression, increase to 10mg tomorrow. increase Trazodone 150mg PO qhs for sleep -When necessary Ativan and Haldol for agitation/aggression. -Order EKG -NRT - nicotine patch -SW on board for discharge planning. Encouraged the patient to participate in milieu. Currently awaiting deferral with nuclear equipment test engineer and court date. hopeful for discharge in 2-3 days if patient is improving.
[2024-08-01] MEDS: ESCITALOPRAM 5 MG TAB PO STA (13:02)
[2024-08-01] MEDS: traZODone HCL 50 MG TAB PO SCH (21:15)
[2024-08-02 07:20] VITALS: RESP 16
[2024-08-02] MEDS: ESCITALOPRAM 10 MG TAB PO SCH (08:51)
--- NOTE | 2024-08-02 10:03 | P.PN ---
Progress Note - Text Progress Note Date: 08/02/24 Interval History: Patient was seen today in his room and was agreeable to speak to chief underwriter in the office. He claims that he is doing a bit better today, he states that he is tolerating the Lexapro fairly well, denying any side effects at this time. He appears to be more future oriented, he has been going to groups and participating assistance he can. He states that he has plans to go to AA meetings once he is out of the hospital. Claims that his anxiety is also improving. States that he is able to sleep fairly last night, appetite has been improving. He denies any withdraw symptoms. He does endorse some anxiety. States his appetite is good. At this time patient denies any suicidal or homicidal ideations, intent or plan. Patient denies any auditory, visual hallucinations and denies any paranoia or delusions. Patient denies any side effects from the medications and has been compliant with meds. Mental Status Exam: General Appearance: Patient appears to be older than stated age is alert, directable, and cooperative. Tall, thin build. Hale hair, glasses. Casually dressed. Behavior: Patient is calmly seated without any agitated behavior. Fair eye contact. Speech: Patient's speech is fluent and nonpressured. Mood/Affect: Mood is improving mildly, affect is congruent. improving Suicidality/Homicidality: Patient denies having any suicidal or homicidal ideation intent or plan. Perceptions: Patient denies any visual hallucinations and denies any auditory hallucinations Though content/process: There is no evidence of any delusional thought content and thought process is linear. more future oriented Memory and concentration: AOX3, grossly intact for the purposes of this session Judgment and insight: Improving mildly Assessment: Depression unspecified Alcohol use disorder Substance induced mood disorder Plan: -Patient continues to meet criteria for inpatient psychiatric admission for symptom stabilization and safety. Patient has not signed adult voluntary form and medication consent and was placed in patient's chart. -Medications: last dose of librium 10 mg PO tonight then d/c, continue Lexapro 10 mg PO for depression/anxiety, Trazodone 150mg PO qhs for sleep -When necessary Ativan and Haldol for agitation/aggression. -Order EKG -NRT - nicotine patch -SW on board for discharge planning. Encouraged the patient to participate in milieu. Currently awaiting deferral with claims attorney and court date. hopeful for discharge tomorrow if patient is improving.
[2024-08-03 07:03] VITALS: BP 114/75; PULSE 90; TEMP 98.4
--- NOTE | 2024-08-03 10:17 | P.DS ---
Providers Date of admission: 07/29/24 17:46 Expected date of discharge: 08/03/24 Attending physician: Ney Rosen MD Primary care physician: Fidencio Lentz - Discharge Diagnosis(es) (1) Depression, unspecified Current Visit: Yes Status: Acute Priority: High (2) Alcohol use disorder Current Visit: Yes Status: Acute Priority: High (3) Cannabis use disorder Current Visit: Yes Status: Acute Priority: Medium (4) Nicotine dependence Current Visit: Yes Status: Acute Priority: Low Hospital Course: Admission HPI: Admission note was completed by Dr Gross "patient states that he has been sober for 7 years. Recently he met a woman who he was going to helpget over her addiction. He ended up relapsing, which eventually led to him losing his job. He called the crisis number, and the police eventually came and brought him to the hospital. When asked about suicidal ideations, he responds "I just don't care" reports mild withdrawal symptoms including poor sleep. Last drink was on . He will usually drinks 3-4 days into her oh. He will drink about a fifth a day. Him and his girlfriend will then go through withdrawals together, and then started drinking again a few days later. His last drink was on . He also reports marijuana use. States that he takes a hit a few times a day for pain. Denies any other substance use.Patient denies any homicidal ideations intent or plan. no current or past history of lorenzo or psychosis. Denies significant depression when sober" Hospital course: Upon admission to the unit patient was admitted involuntarily on a petition and certificate and a second certificate was completed and faxed with the courts. Patient ended up signing a deferral with the bottom crane operator and agreeing to treatment. Patient got along well with other patients on the unit and followed unit protocol. Patient was compliant with the medications and denied any side effects throughout hospital course. Patient was started on Librium scheduled which was tapered down for alcohol withdrawal, Lexapro increased to dose of 10 mg daily for depression/anxiety, trazodone increased to dose of 150 mg nightly for sleep/mood. Patient was offered anticraving medications for alcohol use however declined. Patient spoke of his stressors and engaged in therapy both group and individual. Patient was also seen by medical team for history and physical exam. Throughout the course of the hospitalization patient gradually improved with regards to mood, anxiety, sleep and became more future oriented with improved insight and judgment. On the day of discharge patient denied any suicidal or homicidal ideations intent or plan denied any auditory or visual hallucinations. Patient endorsed wanting to live for his health and family. The patient denied any access to guns or weapons. Patient denied any paranoia and did not endorse any delusions. Patient does have a significant history of substance abuse and was counseled on abstaining from all substances including alcohol and marijuana. Patient was offered however declined inpatient substance-abuse rehab. Patient elected to do outpatient substance use treatment program through [facility]. Patient was also counseled on the medications and need for regular compliance and was encouraged to follow-up with their outpatient appointment for mental health and also for primary care. Patient will be discharged home today, claims that he will be enrolling in AA meetings for his alcohol use disorder. Mental status exam: General Appearance: Patient appears to be thin, glasses, unshaven, stated age is alert, pleasant, and cooperative. Patient is in no acute distress and has improved hygiene and grooming Behavior: Patient is calmly seated without any agitated behavior. Speech: Patient's speech is fluent and nonpressured. Mood/Affect: Patient reports their mood is "better", affect is congruent and euthymic. Suicidality/Homicidality: Patient denies having any suicidal or homicidal ideation intent or plan. Perceptions: Patient denies any auditory or visual hallucinations. Though content/process: There is no evidence of any delusional thought content and thought process is linear and goal-directed. More future oriented Memory and concentration: AOX3, grossly intact for the purposes of this session. Can spell "WORLD" backwards correctly. Judgment and insight: improved with guarded prognosis Impression: Depression unspecified Alcohol use disorder Substance induced mood disorder cannabis use disorder Plan: -Continue with discharge today as patient has improved and stabilized psychiatrically and is not currently an imminent threat to himself and/or others. Patient will remain at chronically elevated risk for harm to self and/or others due to his impulsivity and substance abuse. -Continue medications: Trazodone 150 mg nightly for sleep/mood, Lexapro 10 mg daily for mood/anxiety. Librium was discontinued. -Patient was counseled on the need for medication compliance and appropriate follow-up at mental health and also primary care for medical issues. Patient verbalized understanding and agreed. -Social work to help coordinate patient's discharge today back home. Social work also to arrange for patients follow up appointments with [facility] for psychiatric care along with follow up with primary care provider. -Patient counseled on abstaining from recreational drugs and marijuana and alcohol. Was informed/educated on the adverse effects on their physical and mental health. Patient verbally agreed and understood. Patient was offered substance abuse treatment however declined at this time. -Patient was instructed to return to the hospital or seek immediate medical care if their psychiatric or medical symptoms do worsen or reoccur. Allergies Allergy/AdvReac Type Severity Reaction Status Date / Time No Known Allergies Allergy Verified 07/28/24 20:16 Laboratory Results WBC 4.8 k/uL (3.8-10.6) 07/28/24 22:05 RBC 4.37 m/uL (4.30-5.90) 07/28/24 22:05 Hgb 14.3 gm/dL (13.0-17.5) 07/28/24 22:05 Hct 43.4 % (39.0-53.0) 07/28/24 22:05 MCV 99.4 fL (80.0-100.0) 07/28/24 22:05 MCH 32.8 pg (25.0-35.0) 07/28/24 22:05 MCHC 33.0 g/dL (31.0-37.0) 07/28/24 22:05 RDW 11.9 % (11.5-15.5) 07/28/24 22:05 Plt Count 313 k/uL (150-450) 07/28/24 22:05 MPV 7.2 07/28/24 22:05 Neutrophils % 59 % 07/28/24 22:05 Lymphocytes % 23 % 07/28/24 22:05 Monocytes % 13 % 07/28/24 22:05 Eosinophils % 2 % 07/28/24 22:05 Basophils % 0 % 07/28/24 22:05 Neutrophils # 2.8 k/uL (1.3-7.7) 07/28/24 22:05 Lymphocytes # 1.1 k/uL (1.0-4.8) 07/28/24 22:05 Monocytes # 0.6 k/uL (0-1.0) 07/28/24 22:05 Eosinophils # 0.1 k/uL (0-0.7) 07/28/24 22:05 Basophils # 0.0 k/uL (0-0.2) 07/28/24 22:05 Sodium 144 mmol/L (137-145) 07/28/24 22:05 Potassium 3.8 mmol/L (3.5-5.1) 07/28/24 22:05 Chloride 104 mmol/L (98-107) 07/28/24 22:05 Carbon Dioxide 32 mmol/L (22-30) H 07/28/24 22:05 Anion Gap 8 mmol/L 07/28/24 22:05 BUN 16 mg/dL (9-20) 07/30/24 08:07 Creatinine 0.92 mg/dL (0.66-1.25) 07/28/24 22:05 Est GFR (CKD-EPI)AfAm >90 (>60 ml/min/1.73 sqM) 07/28/24 22:05 Est GFR (CKD-EPI)NonAf >90 (>60 ml/min/1.73 sqM) 07/28/24 22:05 Glucose 90 mg/dL (74-99) 07/28/24 22:[address] Glu mg/dL 128 mg/dL 07/28/24 02:56 Hemoglobin A1c 6.1 % (<=6.0) H 07/28/24 02:56 Calcium 9.8 mg/dL (8.4-10.2) 07/28/24 22:05 Phosphorus 3.4 mg/dL (2.5-4.5) 07/28/24 22:05 Magnesium 1.7 mg/dL (1.6-2.3) 07/28/24 22:05 Total Bilirubin 0.2 mg/dL (0.2-1.3) 07/28/24 22:05 AST 26 U/L (17-59) 07/28/24 22:05 ALT 20 U/L (4-49) 07/28/24 22:05 Alkaline Phosphatase 71 U/L (38-126) 07/28/24 22:05 Total Protein 7.0 g/dL (6.3-8.2) 07/28/24 22:05 Albumin 4.3 g/dL (3.5-5.0) 07/28/24 22:05 Lipase 204 U/L (23-300) 07/28/24 22:05 TSH 1.870 mIU/L (0.465-4.680) 07/30/24 08:07 Urine Color Light Yellow 07/29/24 03:13 Urine Appearance Clear (Clear) 07/29/24 03:13 Urine pH 5.5 (5.0-8.0) 07/29/24 03:13 Ur Specific [place] 1.023 (1.001-1.035) 07/29/24 03:13 Urine Protein Trace (Negative) H 07/29/24 03:13 Urine Glucose (UA) Negative (Negative) 07/29/24 03:13 Urine Ketones Negative (Negative) 07/29/24 03:13 Urine Blood Trace (Negative) H 07/29/24 03:13 Urine Nitrite Negative (Negative) 07/29/24 03:13 Urine Bilirubin Negative (Negative) 07/29/24 03:13 Urine Urobilinogen <2.0 mg/dL (<2.0) 07/29/24 03:13 Ur Leukocyte Esterase Negative (Negative) 07/29/24 03:13 Urine RBC 5 /hpf (0-5) 07/29/24 03:13 Urine WBC 1 /hpf (0-5) 07/29/24 03:13 Ur Squamous Epith Cells <1 /hpf (0-4) 07/29/24 03:13 Hyaline Casts 10 /lpf (0-2) H 07/29/24 03:13 Urine Mucus Occasional /hpf (None) H 07/29/24 03:13 Urine Opiates Screen Not Detected (NotDetected) 07/29/24 03:13 Ur Oxycodone Screen Not Detected (NotDetected) 07/29/24 03:13 Urine Methadone Screen Not Detected (NotDetected) 07/29/24 03:13 Ur Barbiturates Screen Not Detected (NotDetected) 07/29/24 03:13 U Tricyclic Antidepress Not Detected (NotDetected) 07/29/24 03:13 Ur Phencyclidine Scrn Not Detected (NotDetected) 07/29/24 03:13 Ur Amphetamines Screen Not Detected (NotDetected) 07/29/24 03:13 U Methamphetamines Scrn Not Detected (NotDetected) 07/29/24 03:13 U Benzodiazepines Scrn Detected (NotDetected) H 07/29/24 03:13 Urine Cocaine Screen Not Detected (NotDetected) 07/29/24 03:13 U Marijuana (THC) Screen Detected (NotDetected) H 07/29/24 03:13 Serum Alcohol <10 mg/dL 07/29/24 06:30 SARS-CoV-2 (PCR) Not Detected (Not Detectd) 07/29/24 03:23 Vital Signs Temp 98.4 F 08/03/24 06:45 Pulse 90 08/03/24 06:45 Resp 16 08/03/24 06:45 BP 114/75 08/03/24 06:45 Pulse Ox 97 08/03/24 06:45 FiO2 Patient Condition at Discharge: Stable Plan - Discharge Summary Discharge Rx Participant: No New Discharge Prescriptions: New Nicotine 14Mg/24Hr Patch [Habitrol] 1 patch TRANSDERM DAILY 14 Days #14 patch traZODone HCL 150 mg PO HS 30 Days #30 tablet Folic Acid 1 mg PO DAILY 30 Days #30 tab Escitalopram [Lexapro] 10 mg PO DAILY 30 Days #30 tab Multivitamins, Thera [Multivitamin (formulary)] 1 each PO DAILY 30 Days #30 tab Nicotine Gum (Polacrilex) [Nicorette] 2 mg BUCCAL Q4HR PRN 30 Days #180 pieceofgum PRN Reason: Nicotine Cravings Thiamine [Vitamin B-1] 100 mg PO DAILY 30 Days #30 tab Continue Losartan Potassium 50 mg PO HS Budesonide-Formot 160-4.5 Mcg [Symbicort 160-4.5 Mcg Inhaler] 2 puff INHALATION RT-BID Albuterol Inhaler [Ventolin Hfa Inhaler] 1 - 2 puff INHALATION RT-Q6H PRN PRN Reason: COPD tadalafiL 10 mg PO DAILY PRN PRN Reason: e.d. Discontinued traZODone HCL 100 mg PO HS Discharge Medication List Losartan Potassium 50 mg PO HS 11/13/22 [History] Albuterol Inhaler [Ventolin Hfa Inhaler] 1 - 2 puff INHALATION RT-Q6H PRN 12/16/22 [History] Budesonide-Formot 160-4.5 Mcg [Symbicort 160-4.5 Mcg Inhaler] 2 puff INHALATION RT-BID 12/16/22 [History] tadalafiL 10 mg PO DAILY PRN 07/28/24 [History] Escitalopram [Lexapro] 10 mg PO DAILY 30 Days #30 tab 08/03/24 [Rx] Folic Acid 1 mg PO DAILY 30 Days #30 tab 08/03/24 [Rx] Multivitamins, Thera [Multivitamin (formulary)] 1 each PO DAILY 30 Days #30 tab 08/03/24 [Rx] Nicotine 14Mg/24Hr Patch [Habitrol] 1 patch TRANSDERM DAILY 14 Days #14 patch 08/03/24 [Rx] Nicotine Gum (Polacrilex) [Nicorette] 2 mg BUCCAL Q4HR PRN 30 Days #180 pieceofgum 08/03/24 [Rx] Thiamine [Vitamin B-1] 100 mg PO DAILY 30 Days #30 tab 08/03/24 [Rx] traZODone HCL 150 mg PO HS 30 Days #30 tablet 08/03/24 [Rx] Follow up Appointment(s)/Referral(s): Fidencio Lentz MD [Primary Care Provider] - 1-2 days Patient Instructions/Handouts: Depression (DC), Abuse of Alcohol (DC) Activity/Diet/Wound Care/Special Instructions: [facility] Discharge Info Avoid the use of street drugs and alcohol. Take all medications as prescribed. When you are in need of refills on your medications, please contact your outpatient medical provider and/or outpatient psychiatrist. Please go to your scheduled outpatient appointments for aftercare treatment. If symptoms return or become worse, call the crisis line at or and/or visit the nearest emergency room for assistance. National Suicide and Crisis Lifeline - call or text 958. Discharge Disposition: HOME SELF-CARE
== END 2024-08-03 13:32 | disposition home or self-care (01) | DRG 897 ==
LOC: EC 19:16 → 3MHU 07-29 17:46
PROVIDERS: ADMIT Psychiatry & Neurology Psychiatry; ATTEND Psychiatry & Neurology Psychiatry
DX: F10.239 Alcohol dependence with withdrawal, unspecified (principal); R45.851 Suicidal ideations; N17.9 Acute kidney failure, unspecified; Z59.00 Homelessness unspecified; F19.94 Other psychoactive substance use, unspecified with psychoactive substance-induced mood disorder; I10 Essential (primary) hypertension; J44.89 Other specified chronic obstructive pulmonary disease; F32.A Depression, unspecified; F17.210 Nicotine dependence, cigarettes, uncomplicated; G47.00 Insomnia, unspecified; Y90.0 Blood alcohol level of less than 20 mg/100 ml; Z79.51 Long term (current) use of inhaled steroids; Z79.899 Other long term (current) drug therapy; Z56.0 Unemployment, unspecified; Z91.51 Personal history of suicidal behavior
CPT/HCPCS: 36415; 80053; 80306; 80320; 81001; 82075; 83036; 83690; 83735; 84100; 84443; 84520; 85025; 87635; 90656; 93005; 94640; 96361; 96374; 96375; 96376; 99285

== ENCOUNTER → 2024-11-22 | Outpatient (CLI) | payer OTHER ==
--- NOTE | 2024-11-22 14:43 | US ---
EXAMINATION TYPE: US kidneys/renal and bladder DATE OF EXAM: 11/22/2024 COMPARISON: NONE CLINICAL INDICATION: Male, 59 years old with history of R31.9 HEMATURIA; TECHNIQUE: Grayscale imaging of the bilateral kidneys and urinary bladder: FINDINGS: EXAM MEASUREMENTS: Right Kidney: 10.3 x 4.8 x 4.8 cm Left Kidney: 11.9 x 5.4 x 5.0 cm Right Kidney: wnl Left Kidney: wnl Bladder: wnl Bilateral Jets seen: no IMPRESSION: 1. Unremarkable renal ultrasound [facility], , 11/22/2024 2:41 PM
--- NOTE | 2024-11-22 15:41 | BD ---
EXAMINATION TYPE: Axial Bone Density DATE OF EXAM: 11/22/2024 CLINICAL HISTORY: 59 years old Male. ICD-10 CODE: M89.8X9 OSTEOMYELITIS , Additional History: Height: 72 in Weight: 169 lbs FRAX RISK QUESTIONS: History of Fracture in Adulthood: lt ankle age 43 Secondary Osteoporosis: Current Tobacco Use: yes EXAM MEASUREMENTS: Bone mineral densitometry was performed using the [employer] System. Bone mineral density as measured about the Lumbar spine is: ----- L1-L4(G/cm2): 1.294 T Score Values are as follows: ----- L1: 0.3 ----- L2: 0.2 ----- L3: 1.1 ----- L4: 1.8 ----- L1-L4: 0.9 Z Score Values are as follows: ----- L1: 0.4 ----- L2: 0.2 ----- L3: 1.1 ----- L4: 1.9 ----- L1-L4: 1.0 Bone mineral density baseline Bone mineral density about the R hip (g/cm2): 0.964 Bone mineral density about the L hip (g/cm2): 0.939 T Score values are as follows: -----R Neck: -0.7 -----L Neck: -0.9 -----R Total: -0.3 -----L Total: -0.5 Z Score values are as follows: -----R Neck: 0.0 -----L Neck: -0.3 -----R Total: -0.5 -----L Total: -0.6 Bone mineral density baseline FRAX%s: The graph provided illustrates a 9.0% chance for a major osteoporotic fx and a 1.5% chance fo r the hips probability for fx in 10 years time. IMPRESSION: Normal (Values between +1 and -1 indicate normal bone mass). Consider repeating this study in 5 year s or sooner if there is some new clinical indication. NOTE: T-SCORE=SD OF THE YOUNG ADULT MEAN. [facility], Workstation: [id number], 11/22/2024 3:39 PM
--- NOTE | 2024-11-22 17:57 | CTL ---
EXAMINATION TYPE: CT Low Dose Lung DATE OF EXAM: 11/22/2024 3:53 PM COMPARISON: None. SCREENING VISIT: Initial CT DIAGNOSTIC QUALITY: Satisfactory CLINICAL INDICATION: Male, 59 years old with history of tobacco use, COPD, personal tobacco use, Lung cancer screening, History of tobacco use. TECHNIQUE: Low dose computed tomography scan was performed through the chest at 1 mm thick sections a nd reconstructed images in the coronal plane at 1 mm thick sections. Contrast used: mL of , (none if empty) Oral contrast used: (none if empty) CT DLP: 103.9 mGycm, Automated exposure control for dose reduction was used. CT CTDI: 2.5 mGy, Automated exposure control for dose reduction was used. FINDINGS: LUNG NODULES: Present, detailed below: 1. A 0.8 cm nodular density medial right apex, series 6 image 10. LUNGS: COPD: Severity: Moderate Fibrosis: Severity: None Lymph nodes: None Other findings: None RIGHT PLEURAL SPACE: Effusion: None Calcification: None Thickening: None Pneumothorax: None LEFT PLEURAL SPACE: Effusion: None Calcification: None Thickening: None Pneumothorax: None HEART: Other: Ascending thoracic aorta at the level the main pulmonary artery measures 3.9 cm. The main pul monary artery at the bifurcation measures2.3 cm. Heart Size: Normal Coronary calcification: Mild Pericardial effusion: None OTHER FINDINGS: Upper abdomen: Normal Bony thorax: Normal Supraclavicular region: Normal IMPRESSION: 1. 0.8 cm density medial right apex. Consider additional evaluation with PET/CT. FOLLOW UP CT CHEST RECOMMENDATION: PET/CT CT LUNG RAD: Lung-Rad 4A [facility], Workstation: [email or web address], 11/22/2024 5:54 PM
== END | disposition home or self-care (01) ==
LOC: RADUSWWP 14:10
PROVIDERS: ATTEND Family Medicine
DX: Z12.2 Encounter for screening for malignant neoplasm of respiratory organs (principal); R31.9 Hematuria, unspecified; M86.8X9 Other osteomyelitis, unspecified sites; J44.9 Chronic obstructive pulmonary disease, unspecified; F17.210 Nicotine dependence, cigarettes, uncomplicated; J98.4 Other disorders of lung
CPT/HCPCS: 71271; 76770; 77080

== ENCOUNTER → 2024-12-22 | Outpatient (CLI) | payer OTHER ==
--- NOTE | 2024-12-23 11:12 | PE ---
EXAMINATION TYPE: PET CT fusion skull to thigh DATE OF EXAM: 12/22/2024 CLINICAL INDICATION:Male, 59 years old with history of R91.1 LUNG NODULE; TECHNIQUE: Following the intravenous administration of 10.35 mCi of F-18 FDG, whole body images are performed from the skull base to the Mid thigh. Images are reviewed on the computer in the coronal, axial, and sagittal planes. Reconstructed rotating images are created on independent workstation an d reviewed on the computer. A non-contrast CT is performed in conjunction with the PET scan. Glucos e level 91 mg/dL CT DLP: 386.5 mGycm, Automated exposure control for dose reduction was used. COMPARISON: CT 11/22/2024, PET/CT None, MRI: None FINDINGS: Mediastinal SUV mean is 1.5. Hepatic parenchyma SUV mean is 2.1. SKULL BASE AND NECK: No suspicious radiotracer activity. CHEST, MEDIASTINUM, AND HILAR REGION: Right upper lung apex nodule measuring 8 mm Max SUV 0.9. ABDOMEN AND PELVIS: No suspicious radiotracer activity. MUSCULOSKELETAL STRUCTURES: No suspicious radiotracer activity. OTHER CT: Moderate centrilobular emphysema changes. Mild coronary artery calcifications. Carotid bifu rcation calcifications. Scattered colonic diverticula. Metallic screw degeneration changes of the hip s with joint space narrowing and osteophyte formation. IMPRESSION: Right upper lobe pulmonary nodule with FDG activity below background levels continued surveillance wi th CT low dose lung cancer screening yearly. [facility], , 12/23/2024 11:09 AM
== END | disposition home or self-care (01) ==
LOC: RADPETMAIN 12:48
PROVIDERS: ATTEND Family Medicine
DX: R91.1 Solitary pulmonary nodule (principal); R93.89 Abnormal findings on diagnostic imaging of other specified body structures
CPT/HCPCS: 78815; A9552